=== PATIENT | female | born 1935 | race Caucasian/White ===

== ENCOUNTER → 2020-07-11 10:35 | Outpatient (BNVA) | payer MEDICARE, SELFPAY | PROVIDERS: PCP Internal Medicine; Visit Provider Urology | DX: Z13.89 Encounter for screening for other disorder (principal) | CPT/HCPCS: Q3014 ==

== ENCOUNTER 2022-03-18 16:34 | Outpatient (REF) | payer MEDICARE, SELFPAY ==
[2022-03-18 16:50] LABS: MANUAL DIFF FLAG NO
[2022-03-18 17:30] LABS: Basophils Absolute Auto 0.1 X10*3/uL (0.0-0.2); Basophils Percent Auto 0.9 % (0-2); Eosinophils Absolute Auto 0.1 X10*3/uL (0.0-0.4); Eosinophils Percent Auto 1.8 % (0-4); Hematocrit 43.6 % (37.0-47.0); Hemoglobin 14.4 g/dl (12.0-16.0); Imm Gran Abs Auto 0.04 X10*3/uL (0.00-0.03); Imm Gran Pct Auto 0.5 % (0.0-0.4); Lymphocytes Absolute Auto 2.3 X10*3/uL (1.2-4.9); Lymphocytes Percent Auto 29.2 % (20-40); Mean Corpuscular Hemoglobin 29.4 pg (27.0-33.0); Mean Platelet Volume 11.9 fL (9.4-12.3); Monocytes Absolute Auto 0.5 X10*3/uL (0.1-1.2); Neutrophils Absolute Auto 4.8 x10*3/uL (2.0-8.3); Neutrophils Percent Auto 61.6 % (45-73); Platelet Count 301 X10*3/uL (160-400); Red Cell Distribution Width 13.1 % (11.0-16.0); White Blood Count 7.8 X10*3/uL (4.8-10.8)
[2022-03-18 17:58] LABS: C Reactive Protein 0.15 mg/dL (< or = 0.50)
[2022-03-18 18:19] LABS: Erythrocyte Sedimentation Rate 16 MM/HR (0-20)
== END 2022-03-18 16:35 | disposition home or self-care (01) ==
LOC: HO.LAB 16:34
PROVIDERS: Visit Provider Ophthalmology
DX: M31.6 Other giant cell arteritis (principal)
CPT/HCPCS: 36415; 85025; 85652; 86140

== ENCOUNTER 2022-07-07 17:53 | Emergency (ER) | payer MEDICARE, SELFPAY ==
--- NOTE | ~2022-07-07 | US_ITS ---
EXAMINATION: US ABDOMEN LIMITED CLINICAL INFORMATION: Abnormal liver functions and right upper quadrant pain. COMPARISON: CT abdomen pelvis 04/27/2017 TECHNIQUE: Real-time imaging of the right upper quadrant abdominal viscera. FINDINGS: PANCREAS: Normal. LIVER: The liver is normal in size. The liver contour is normal. There is a suggestion of some minimal increased echogenicity of the liver raising the question of hepatic steatosis. No focal hepatic lesion. There is no intrahepatic biliary duct dilatation seen. GALLBLADDER: Surgically absent. COMMON BILE DUCT: Normal in caliber measuring 0.7 cm in diameter. RIGHT KIDNEY: No hydronephrosis. No renal calculi or focal parenchymal lesions. The kidney measures 8.1m cm in maximum dimension. FREE FLUID: None. US/US abdomen limited IMPRESSION: Question of hepatic steatosis.
[2022-07-07 17:55] VITALS: BP 156/81; PULSE 84; RESP 16; TEMP 36.2; O2SAT 98; BMI 24.7
--- NOTE | 2022-07-07 17:56 | ED.RECABL ---
HPI - Recheck/Abnormal Lab/Rx General Chief Complaint: Recheck/Abnormal Lab/Rx <MIESHA Fairchild - Last Filed: 07/07/22 18:04> Stated Complaint: Abnormal labs <MIESHA Fairchild - Last Filed: 07/07/22 18:04> Time Seen by Provider: 07/07/22 23:20 <MIESHA Fairchild - Last Filed: 07/07/22 18:04> Source: patient <Richard Clayton MD - Last Filed: 07/08/22 00:30> Mode of arrival: ambulatory <Richard Clayton MD - Last Filed: 07/08/22 00:30> Limitations: no limitations <Richard Clayton MD - Last Filed: 07/08/22 00:30> History of Present Illness HPI narrative: Patient with upper abdominal discomfort for last 3 weeks since she had COVID in 06/02 does not feel hungry feels bloated status post cholecystectomy chronic back pain had labs done as outpatient showed elevated liver function test patient denied use of Tylenol had CT scan done today as outpatient which according to patient was normal had ultrasound done which was also negative except for hepatic steatosis no fever no chills no rash no bleeding no itching no change in sensorium patient take atorvastatin, aspirin, tramadol <Richard Clayton MD - Last Filed: 07/08/22 00:30> Related Data Home Medications: Previous Rx's Medication Instructions Recorded mirabegron 50 mg tablet,extended 50 mg PO DAILY #30 tabs 02/12/21 release 24 hr (Myrbetriq) pantoprazole 40 mg tablet,delayed 40 mg PO DAILY #30 tabs 07/08/22 release (Protonix) sucralfate 1 gram tablet 1 g PO BID #60 tabs 07/08/22 <MIESHA Fairchild - Last Filed: 07/07/22 18:04> Allergies/Adverse Reactions: Allergies Allergy/AdvReac Type Severity Reaction Status Date / Time Iodinated Contrast Media Allergy Mild FACIAL Verified 07/07/22 17:59 [IV Dye, Iodine Containing] SWELLING codeine Allergy Unknown N&V Uncoded 05/19/19 00:00 IVP dye Allergy Unknown hives, Uncoded 05/19/19 00:00 urticaria <MIESHA Fairchild - Last Filed: 07/07/22 18:04> Review of Systems Review of Systems: Yes all other systems are reviewed and are negative <Richard Clayton MD - Last Filed: 07/08/22 00:30> [facility] Past Medical History Medical History: Medical History Cystitis cystica H/O urinary frequency Nocturia Overactive bladder Urge incontinence Urge incontinence Urgency of micturition <MIESHA Fairchild - Last Filed: 07/07/22 18:04> Social History Social History: Social History Advance Directives: No Advance Directives Information Provided: Yes <MIESHA Fairchild - Last Filed: 07/07/22 18:04> Physical Exam Vital Signs: Vital Signs: Last Vital Signs Temp 98.5 F 07/07/22 22:51 Pulse 71 07/07/22 22:51 Resp 16 07/07/22 22:51 BP 148/67 H 07/07/22 22:51 Pulse Ox 98 07/07/22 22:51 O2 Del Method 07/07/22 22:51 BMI result Body Mass Index 24.7 <MIESHA Fairchild - Last Filed: 07/07/22 18:04> Vital Signs: Last Vital Signs Temp 98.5 F 07/07/22 22:51 Pulse 71 07/07/22 22:51 Resp 16 07/07/22 22:51 BP 148/67 H 07/07/22 22:51 Pulse Ox 98 07/07/22 22:51 O2 Del Method 07/07/22 22:51 BMI result Body Mass Index 24.7 <Richard Clayton MD - Last Filed: 07/08/22 00:30> Appearance: Alert. Oriented X3. No acute distress. Eyes: PERRLA, No Nystagmus ENT: Pharynx normal. Oral Mucosa moist Neck: Normal inspection. Neck supple. CVS: Normal heart rate and rhythm. Pulses normal. Respiratory: No respiratory distress. Equal air entry bilateral, no wheezing/rales/rhonchi Abdomen: Soft mild discomfort in epigastric area Bowel sounds are present, no mass palpable, no CVA tenderness Skin: Skin warm and dry. Normal skin color. Normal skin turgor. Extremities: No lower extremity edema. No calf tenderness Neuro: Oriented X 3. No motor deficit. No sensory deficit.No cerebellar signs , cranial nerves II-XII intact <Richard Clayton MD - Last Filed: 07/08/22 00:30> Course Course Course Narrative: RME - 86 yo female with history of COVID 06/09/22 s/p Paxlovid presenting from doctor's office with elevated liver enzymes. She reports RUQ pain and fullness for a while now, since before COVID. Nauseated but no vomiting or diarrhea. VSS and appears well in triage. Minimal RUQ tenderness. Will get repeat labs, INR, and RUQ U/S for further evaluation. LFTS on her electronic medical record showing LFTs 200/700, bilirubin 2.0. ?hepatoxicity from Paxlovid. <MIESHA Fairchild - Last Filed: 07/07/22 18:04> Medical Decision Making Medical Decision Making [facility] Narrative: Cause of acute elevation in liver enzymes not very clear patient does not take Tylenol no significant medication causing the pruritus except for status which advised to stop it patient advised to follow with the GI case discussed Dr. Kaminski agreed as outpatient follow up <Richard Clayton MD - Last Filed: 07/08/22 00:30> Lab Data [facility] Lab Attestation statement: I reviewed the patient's lab results. <Richard Clayton MD - Last Filed: 07/08/22 00:30> Result Diagrams: 07/07/22 20:57 07/07/22 20:57 <MIESHA Fairchild - Last Filed: 07/07/22 18:04> Labs: Lab Results 07/07/22 07/07/22 07/07/22 Range/Units 20:57 20:57 20:57 WBC 5.9 (4.8-10.8) X10*3/uL RBC 4.92 (4.20-5.50) X10*6/uL Hgb 14.2 (12.0-16.0) g/dl Hct 42.5 (37.0-47.0) % MCV 86.4 (80.0-98.0) fL MCH 28.9 (27.0-33.0) pg MCHC 33.4 (31.0-35.0) g/dl RDW 13.6 (11.0-16.0) % Plt Count 238 (160-400) X10*3/uL MPV 11.2 (9.4-12.3) fL Immature Gran % (Auto) 0.2 (0.0-0.4) % Neut % (Auto) 61.2 (45-73) % Lymph % (Auto) 25.3 (20-40) % [place] % (Auto) 9.1 (2-11) % Eos % (Auto) 3.4 (0-4) % Baso % (Auto) 0.8 (0-2) % Lymph # (Auto) 1.5 (1.2-4.9) X10*3/uL [place] # (Auto) 0.5 (0.1-1.2) X10*3/uL Eos # (Auto) 0.2 (0.0-0.4) X10*3/uL Baso # (Auto) 0.1 (0.0-0.2) X10*3/uL Abs Immat Gran (auto) 0.01 (0.00-0.03) X10*3/uL Absolute Neuts (auto) 3.6 (2.0-8.3) x10*3/uL Absolute Nucleated RBC 0.000 (0.0-0.012) X10*3/uL Nucleated RBC % (auto) 0.0 (0.0-0.2) /100WBC PT 10.8 (10.0-13.1) SEC INR 0.9 (0.9-1.1) APTT 38.2 H (26.0-36.4) SEC Sodium 142 (135-145) mmol/L Potassium 3.8 (3.3-5.1) mmol/L Chloride 106 (96-108) mmol/L Carbon Dioxide 26 (22-29) mmol/L Anion Gap 14 (12-20) BUN 12 (9-16) mg/dL Creatinine 0.80 (0.5-1.4) mg/dL Estim Creat Clear Calc 45.2 Estimated GFR > 60 Random Glucose 114 (60-115) mg/dL Calcium 9.4 (8.4-10.2) mg/dL Magnesium 2.3 (1.6-2.6) mg/dL Total Bilirubin 1.8 H (0.0-1.0) mg/dL Direct Bilirubin 1.2 H (0.0-0.5) mg/dL AST 343 H (5-31) U/L ALT 602 H (0-31) U/L Alkaline Phosphatase 248 H (39-117) U/L Total Protein 6.7 (6.5-8.0) g/dL Albumin 4.1 (3.5-5.0) g/dL Lipase 31 (8-78) U/L Urine Color Urine Appearance Urine pH (5.0-9.0) Ur Specific [place] (1.005-1.025) Urine Protein (Neg-Trace) mg/dL Urine Glucose (UA) (Negative) mg/dL Urine Ketones (Negative) mg/dL Urine Blood (Negative) Urine Nitrite (Negative) Ur Leukocyte Esterase (Negative) Urine RBC (0-2) /HPF Urine WBC (0-5) /HPF Ur Squamous Epith Cells (0-2) /HPF Urine Bacteria (None Seen) Hyaline Casts (0-2) /LPF Acetaminophen < 17 (<30) mcg/mL Influenza Type A (PCR) (Negative) Influenza Type B (PCR) (Negative) RSV RNA Qual (PCR) (Negative) SARS-CoV-2 RNA (RT-PCR) (Negative) 07/07/22 07/07/22 Range/Units 22:32 23:48 WBC (4.8-10.8) X10*3/uL RBC (4.20-5.50) X10*6/uL Hgb (12.0-16.0) g/dl Hct (37.0-47.0) % MCV (80.0-98.0) fL MCH (27.0-33.0) pg MCHC (31.0-35.0) g/dl RDW (11.0-16.0) % Plt Count (160-400) X10*3/uL MPV (9.4-12.3) fL Immature Gran % (Auto) (0.0-0.4) % Neut % (Auto) (45-73) % Lymph % (Auto) (20-40) % Marathon % (Auto) (2-11) % Eos % (Auto) (0-4) % Baso % (Auto) (0-2) % Lymph # (Auto) (1.2-4.9) X10*3/uL Marathon # (Auto) (0.1-1.2) X10*3/uL Eos # (Auto) (0.0-0.4) X10*3/uL Baso # (Auto) (0.0-0.2) X10*3/uL Abs Immat Gran (auto) (0.00-0.03) X10*3/uL Absolute Neuts (auto) (2.0-8.3) x10*3/uL Absolute Nucleated RBC (0.0-0.012) X10*3/uL Nucleated RBC % (auto) (0.0-0.2) /100WBC PT (10.0-13.1) SEC INR (0.9-1.1) APTT (26.0-36.4) SEC Sodium (135-145) mmol/L Potassium (3.3-5.1) mmol/L Chloride (96-108) mmol/L Carbon Dioxide (22-29) mmol/L Anion Gap (12-20) BUN (9-16) mg/dL Creatinine (0.5-1.4) mg/dL Estim Creat Clear Calc Estimated GFR Random Glucose (60-115) mg/dL Calcium (8.4-10.2) mg/dL Magnesium (1.6-2.6) mg/dL Total Bilirubin (0.0-1.0) mg/dL Direct Bilirubin (0.0-0.5) mg/dL AST (5-31) U/L ALT (0-31) U/L Alkaline Phosphatase (39-117) U/L Total Protein (6.5-8.0) g/dL Albumin (3.5-5.0) g/dL Lipase (8-78) U/L Urine Color Yellow Urine Appearance Clear Urine pH 5.5 (5.0-9.0) Ur Specific [place] <= 1.005 (1.005-1.025) Urine Protein Negative (Neg-Trace) mg/dL Urine Glucose (UA) Negative (Negative) mg/dL Urine Ketones Negative (Negative) mg/dL Urine Blood Trace H (Negative) Urine Nitrite Negative (Negative) Ur Leukocyte Esterase Trace H (Negative) Urine RBC 0-2 (0-2) /HPF Urine WBC 0-5 (0-5) /HPF Ur Squamous Epith Cells 0-2 (0-2) /HPF Urine Bacteria None Seen (None Seen) Hyaline Casts 0-2 (0-2) /LPF Acetaminophen (<30) mcg/mL Influenza Type A (PCR) NEGATIVE (Negative) Influenza Type B (PCR) NEGATIVE (Negative) RSV RNA Qual (PCR) NEGATIVE (Negative) SARS-CoV-2 RNA (RT-PCR) NEGATIVE (Negative) <MIESHA Fairchild - Last Filed: 07/07/22 18:04> Lab Results 07/07/22 07/07/22 07/07/22 Range/Units 20:57 20:57 20:57 WBC 5.9 (4.8-10.8) X10*3/uL RBC 4.92 (4.20-5.50) X10*6/uL Hgb 14.2 (12.0-16.0) g/dl Hct 42.5 (37.0-47.0) % MCV 86.4 (80.0-98.0) fL MCH 28.9 (27.0-33.0) pg MCHC 33.4 (31.0-35.0) g/dl RDW 13.6 (11.0-16.0) % Plt Count 238 (160-400) X10*3/uL MPV 11.2 (9.4-12.3) fL Immature Gran % (Auto) 0.2 (0.0-0.4) % Neut % (Auto) 61.2 (45-73) % Lymph % (Auto) 25.3 (20-40) % Marathon % (Auto) 9.1 (2-11) % Eos % (Auto) 3.4 (0-4) % Baso % (Auto) 0.8 (0-2) % Lymph # (Auto) 1.5 (1.2-4.9) X10*3/uL Marathon # (Auto) 0.5 (0.1-1.2) X10*3/uL Eos # (Auto) 0.2 (0.0-0.4) X10*3/uL Baso # (Auto) 0.1 (0.0-0.2) X10*3/uL Abs Immat Gran (auto) 0.01 (0.00-0.03) X10*3/uL Absolute Neuts (auto) 3.6 (2.0-8.3) x10*3/uL Absolute Nucleated RBC 0.000 (0.0-0.012) X10*3/uL Nucleated RBC % (auto) 0.0 (0.0-0.2) /100WBC PT 10.8 (10.0-13.1) SEC INR 0.9 (0.9-1.1) APTT 38.2 H (26.0-36.4) SEC Sodium 142 (135-145) mmol/L Potassium 3.8 (3.3-5.1) mmol/L Chloride 106 (96-108) mmol/L Carbon Dioxide 26 (22-29) mmol/L Anion Gap 14 (12-20) BUN 12 (9-16) mg/dL Creatinine 0.80 (0.5-1.4) mg/dL Estim Creat Clear Calc 45.2 Estimated GFR > 60 Random Glucose 114 (60-115) mg/dL Calcium 9.4 (8.4-10.2) mg/dL Magnesium 2.3 (1.6-2.6) mg/dL Total Bilirubin 1.8 H (0.0-1.0) mg/dL Direct Bilirubin 1.2 H (0.0-0.5) mg/dL AST 343 H (5-31) U/L ALT 602 H (0-31) U/L Alkaline Phosphatase 248 H (39-117) U/L Total Protein 6.7 (6.5-8.0) g/dL Albumin 4.1 (3.5-5.0) g/dL Lipase 31 (8-78) U/L Urine Color Urine Appearance Urine pH (5.0-9.0) Ur Specific [place] (1.005-1.025) Urine Protein (Neg-Trace) mg/dL Urine Glucose (UA) (Negative) mg/dL Urine Ketones (Negative) mg/dL Urine Blood (Negative) Urine Nitrite (Negative) Ur Leukocyte Esterase (Negative) Urine RBC (0-2) /HPF Urine WBC (0-5) /HPF Ur Squamous Epith Cells (0-2) /HPF Urine Bacteria (None Seen) Hyaline Casts (0-2) /LPF Acetaminophen < 17 (<30) mcg/mL Influenza Type A (PCR) (Negative) Influenza Type B (PCR) (Negative) RSV RNA Qual (PCR) (Negative) SARS-CoV-2 RNA (RT-PCR) (Negative) 07/07/22 07/07/22 Range/Units 22:32 23:48 WBC (4.8-10.8) X10*3/uL RBC (4.20-5.50) X10*6/uL Hgb (12.0-16.0) g/dl Hct (37.0-47.0) % MCV (80.0-98.0) fL MCH (27.0-33.0) pg MCHC (31.0-35.0) g/dl RDW (11.0-16.0) % Plt Count (160-400) X10*3/uL MPV (9.4-12.3) fL Immature Gran % (Auto) (0.0-0.4) % Neut % (Auto) (45-73) % Lymph % (Auto) (20-40) % Marathon % (Auto) (2-11) % Eos % (Auto) (0-4) % Baso % (Auto) (0-2) % Lymph # (Auto) (1.2-4.9) X10*3/uL Marathon # (Auto) (0.1-1.2) X10*3/uL Eos # (Auto) (0.0-0.4) X10*3/uL Baso # (Auto) (0.0-0.2) X10*3/uL Abs Immat Gran (auto) (0.00-0.03) X10*3/uL Absolute Neuts (auto) (2.0-8.3) x10*3/uL Absolute Nucleated RBC (0.0-0.012) X10*3/uL Nucleated RBC % (auto) (0.0-0.2) /100WBC PT (10.0-13.1) SEC INR (0.9-1.1) APTT (26.0-36.4) SEC Sodium (135-145) mmol/L Potassium (3.3-5.1) mmol/L Chloride (96-108) mmol/L Carbon Dioxide (22-29) mmol/L Anion Gap (12-20) BUN (9-16) mg/dL Creatinine (0.5-1.4) mg/dL Estim Creat Clear Calc Estimated GFR Random Glucose (60-115) mg/dL Calcium (8.4-10.2) mg/dL Magnesium (1.6-2.6) mg/dL Total Bilirubin (0.0-1.0) mg/dL Direct Bilirubin (0.0-0.5) mg/dL AST (5-31) U/L ALT (0-31) U/L Alkaline Phosphatase (39-117) U/L Total Protein (6.5-8.0) g/dL Albumin (3.5-5.0) g/dL Lipase (8-78) U/L Urine Color Yellow Urine Appearance Clear Urine pH 5.5 (5.0-9.0) Ur Specific [place] <= 1.005 (1.005-1.025) Urine Protein Negative (Neg-Trace) mg/dL Urine Glucose (UA) Negative (Negative) mg/dL Urine Ketones Negative (Negative) mg/dL Urine Blood Trace H (Negative) Urine Nitrite Negative (Negative) Ur Leukocyte Esterase Trace H (Negative) Urine RBC 0-2 (0-2) /HPF Urine WBC 0-5 (0-5) /HPF Ur Squamous Epith Cells 0-2 (0-2) /HPF Urine Bacteria None Seen (None Seen) Hyaline Casts 0-2 (0-2) /LPF Acetaminophen (<30) mcg/mL Influenza Type A (PCR) NEGATIVE (Negative) Influenza Type B (PCR) NEGATIVE (Negative) RSV RNA Qual (PCR) NEGATIVE (Negative) SARS-CoV-2 RNA (RT-PCR) NEGATIVE (Negative) <Richard Clayton MD - Last Filed: 07/08/22 00:30> Discharge Plan Discharge Clinical Impression: Abnormal LFTs (liver function tests) <MIESHA Fairchild - Last Filed: 07/07/22 18:04> Patient Disposition: Home, Self-Care <MIESHA Fairchild - Last Filed: 07/07/22 18:04> Instructions: Acute Liver Failure (DC) <MIESHA Fairchild - Last Filed: 07/07/22 18:04> Additional Instructions: avoid fried food Avoid Tylenol Follow-up with merchandising director to recheck the labs and management <MIESHA Fairchild - Last Filed: 07/07/22 18:04> Prescriptions: New pantoprazole [Protonix] 40 mg tablet,delayed release (DR/EC) 40 mg PO DAILY Qty: 30 0RF sucralfate 1 gram tablet 1 g PO BID Qty: 60 0RF No Action Myrbetriq 50 mg tablet extended release 24 hr 50 mg PO DAILY Qty: 30 5RF <MIESHA Fairchild - Last Filed: 07/07/22 18:04> Referrals: Alicia Kaminski MD [Physician] - 3 days <MIESHA Fairchild - Last Filed: 07/07/22 18:04>
[2022-07-07 21:04] LABS: MANUAL DIFF FLAG NO
[2022-07-07 21:06] LABS: Basophils Absolute Auto 0.1 X10*3/uL (0.0-0.2); Basophils Percent Auto 0.8 % (0-2); Eosinophils Absolute Auto 0.2 X10*3/uL (0.0-0.4); Eosinophils Percent Auto 3.4 % (0-4); Hematocrit 42.5 % (37.0-47.0); Hemoglobin 14.2 g/dl (12.0-16.0); Imm Gran Abs Auto 0.01 X10*3/uL (0.00-0.03); Imm Gran Pct Auto 0.2 % (0.0-0.4); Lymphocytes Absolute Auto 1.5 X10*3/uL (1.2-4.9); Lymphocytes Percent Auto 25.3 % (20-40); Mean Corpuscular HGB Conc 33.4 g/dl (31.0-35.0); Mean Corpuscular Hemoglobin 28.9 pg (27.0-33.0); Mean Corpuscular Volume 86.4 fL (80.0-98.0); Mean Platelet Volume 11.2 fL (9.4-12.3); Monocytes Absolute Auto 0.5 X10*3/uL (0.1-1.2); Monocytes Percent Auto 9.1 % (2-11); Neutrophils Absolute Auto 3.6 x10*3/uL (2.0-8.3); Neutrophils Percent Auto 61.2 % (45-73); Platelet Count 238 X10*3/uL (160-400); Red Blood Count 4.92 X10*6/uL (4.20-5.50); Red Cell Distribution Width 13.6 % (11.0-16.0); White Blood Count 5.9 X10*3/uL (4.8-10.8)
[2022-07-07 21:12] LABS: INTERNATIONAL NORM RATIO 0.9 (0.9-1.1); Prothrombin Time 10.8 SEC (10.0-13.1)
[2022-07-07 21:14] LABS: Partial Thromboplastin Time 38.2 SEC (26.0-36.4)
[2022-07-07 21:25] LABS: Alanine Aminotransferase 602 U/L (0-31); Albumin Level 4.1 g/dL (3.5-5.0); Alkaline Phosphatase 248 U/L (39-117); Anion Gap 14 (12-20); Aspartate Amino Transferase 343 U/L (5-31); Bilirubin Direct 1.2 mg/dL (0.0-0.5); Bilirubin Total 1.8 mg/dL (0.0-1.0); Blood Urea Nitrogen 12 mg/dL (9-16); Calcium 9.4 mg/dL (8.4-10.2); Carbon Dioxide 26 mmol/L (22-29); Chloride 106 mmol/L (96-108); Creatinine Clr Calc Pharmacy 45.2; Estimated Glomerular Filt Rate > 60; Glucose Random 114 mg/dL (60-115); Lipase 31 U/L (8-78); Magnesium 2.3 mg/dL (1.6-2.6); Potassium 3.8 mmol/L (3.3-5.1); Sodium 142 mmol/L (135-145); Total Protein 6.7 g/dL (6.5-8.0)
[2022-07-07 22:26] VITALS: BP 153/66; PULSE 77; RESP 20; TEMP 36.4; O2SAT 97
[2022-07-07 22:51] VITALS: BP 148/67; PULSE 71; RESP 16; TEMP 36.9; O2SAT 98
[2022-07-07 23:14] LABS: Influenza A PCR NEGATIVE (Negative); Influenza B PCR NEGATIVE (Negative); Resp Syncy Virus RNA Qual PCR NEGATIVE (Negative); SARS COV2 PCR INHOUSE NEGATIVE (Negative)
[2022-07-07 23:58] LABS: Appearance Urine Clear; Color Urine Yellow; Glucose Urine UA Negative (Negative); Leukocyte Esterase Urine Trace (Negative); Nitrite Urine Negative (Negative); PH 5.5 (5.0-9.0); Specific Gravity - Urine <= 1.005 (1.005-1.025); UMIC TRIGGER UACC YES; Urine Blood Trace (Negative); Urine Ketones Negative (Negative); Urine Protein Negative (Neg-Trace)
[2022-07-08 00:04] LABS: Bacteria Urine None Seen (None Seen); Hyaline Casts Urine 0-2 /LPF (0-2); RBC Urine 0-2 /HPF (0-2); Squamous Epithelial Cell Urine 0-2 /HPF (0-2); WBC Urine 0-5 /HPF (0-5)
[2022-07-08 00:19] LABS: Acetaminophen LAB < 17 mcg/mL (<30)
[2022-07-08 00:41] VITALS: BP 144/56; PULSE 71; RESP 18; TEMP 37.1; O2SAT 98
[2022-07-08] MEDS: Omeprazole 40 MG CAPSULE.DR PO (00:46)
[2022-07-08] MEDS: Magnesium Hydrox/Alum Hydrox 30 ML ORAL.SUSP PO (00:46)
[2022-07-08 09:01] LABS: HBS Num1 0.14 mIU/mL (0-7.99); HBsAGNum1 0.29 S/CO (0.00-0.99); Hepatitis A Antibody IgM 0.14 Index (0-0.79); Hepatitis B Core Antibody Nonreactive (Nonreactive); Hepatitis B Surface Antigen Negative (Negative); ~HepC Num1 0.06 S/CO (0.00-0.79); ~Hepatitis A Antibody IgM Nonreactive (Nonreactive); ~Hepatitis B Surface Antibody NONREACTIVE (Nonreactive); ~Hepatitis C Antibody Nonreactive (Nonreactive)
== END 2022-07-08 01:01 | disposition home or self-care (01) ==
PROVIDERS: Physician Assistant; Emergency Provider Internal Medicine; PCP Internal Medicine
DX: R79.89 Other specified abnormal findings of blood chemistry (principal); Z20.828 Contact with and (suspected) exposure to other viral communicable diseases; Z20.822 Contact with and (suspected) exposure to COVID-19; Z79.899 Other long term (current) drug therapy
CPT/HCPCS: 0241U; 36415; 76705; 80048; 80076; 80143; 81001; 83690; 83735; 85025; 85610; 85730; 86704; 86706; 86709; 86803; 87340; 99284

== ENCOUNTER → 2022-07-13 12:10 | Outpatient (BNVA) | payer MEDICARE, SELFPAY | PROVIDERS: PCP Internal Medicine; Visit Provider Internal Medicine | DX: R79.89 Other specified abnormal findings of blood chemistry (principal); Z86.16 Personal history of COVID-19 | CPT/HCPCS: 99202 ==

== ENCOUNTER 2022-07-27 11:16 | Outpatient (REF) | payer MEDICARE, SELFPAY ==
[2022-07-27 12:36] LABS: Alanine Aminotransferase 27 U/L (0-31); Albumin Level 3.9 g/dL (3.5-5.0); Alkaline Phosphatase 83 U/L (39-117); Aspartate Amino Transferase 25 U/L (5-31); Bilirubin Direct 0.2 mg/dL (0.0-0.5); Bilirubin Total 0.5 mg/dL (0.0-1.0); Total Protein 6.3 g/dL (6.5-8.0)
== END 2022-07-27 11:17 | disposition home or self-care (01) ==
LOC: HO.LAB 11:16
PROVIDERS: Visit Provider Internal Medicine
DX: R79.89 Other specified abnormal findings of blood chemistry (principal)
CPT/HCPCS: 36415; 80076

== ENCOUNTER → 2022-08-10 10:14 | Outpatient (BNVA) | payer MEDICARE, SELFPAY | PROVIDERS: PCP Internal Medicine; Visit Provider Internal Medicine | DX: K21.9 Gastro-esophageal reflux disease without esophagitis (principal); R79.89 Other specified abnormal findings of blood chemistry; Z86.16 Personal history of COVID-19 | CPT/HCPCS: 99212 ==

== ENCOUNTER 2022-12-14 12:27 | Outpatient (REF) | payer MEDICARE, SELFPAY ==
[2022-12-14 14:28] LABS: Alanine Aminotransferase 18 U/L (0-31); Albumin Level 4.1 g/dL (3.5-5.0); Alkaline Phosphatase 67 U/L (39-117); Anion Gap 13 (12-20); Aspartate Amino Transferase 26 U/L (5-31); Bilirubin Total 0.7 mg/dL (0.0-1.0); Blood Urea Nitrogen 17 mg/dL (9-16); Calcium 9.8 mg/dL (8.4-10.2); Carbon Dioxide 27 mmol/L (22-29); Chloride 105 mmol/L (96-108); Estimated Glomerular Filt Rate > 60; Gamma Glutamyl Transpeptidase 94 U/L (7-33); Glucose Random 98 mg/dL (60-115); Potassium 3.9 mmol/L (3.3-5.1); Sodium 141 mmol/L (135-145)
[2022-12-14 14:47] LABS: TSH reflex Free T4 6.55 uIU/mL (0.32-4.0)
[2022-12-14 15:19] LABS: Free T4 (Free Thyroxine) 0.86 ng/dL (0.71-1.85)
== END 2022-12-14 12:28 | disposition home or self-care (01) ==
LOC: HO.LAB 12:27
PROVIDERS: PCP Internal Medicine; Visit Provider Internal Medicine
DX: R19.7 Diarrhea, unspecified (principal); R11.10 Vomiting, unspecified; R79.89 Other specified abnormal findings of blood chemistry
CPT/HCPCS: 36415; 80053; 82977; 84439; 84443; 85027; 99212

== ENCOUNTER 2022-12-24 | Outpatient (REF) | payer MEDICARE, SELFPAY ==
[2022-12-25 15:46] LABS: Campylobacter Not Detected (Not Detect.); E. coli EAEC Detected (Not Detect.); Plesiomonas shigelloides Not Detected (Not Detect.); Salmonella Not Detected (Not Detect.); Vibrio Not Detected (Not Detect.); Vibrio Cholerae Not Detected (Not Detect.); Yersinia enterocolitica Not Detected (Not Detect.)
[2022-12-25 15:47] LABS: E. coli ETEC Not Detected (Not Detect.)
[2022-12-25 15:48] LABS: E. coli O157 Not Detected (Not Detect.)
[2022-12-25 15:49] LABS: Adenovirus F 40/41 Not Detected (Not Detect.); Astrovirus Not Detected (Not Detect.); Cryptosporidium Not Detected (Not Detect.); Cyclospora cayetanensis Not Detected (Not Detect.); Entamoeba histolytica Not Detected (Not Detect.); Giardia lamblia Not Detected (Not Detect.); Norovirus GI/GII Not Detected (Not Detect.); Rotavirus A Not Detected (Not Detect.); Sapovirus Not Detected (Not Detect.); Shigella sp./EIEC Not Detected (Not Detect.)
[2022-12-29 11:38] LABS: E. coli STEC Detected (Not Detect.)
== END 2022-12-24 00:01 | disposition home or self-care (01) ==
LOC: HO.LNP
PROVIDERS: Visit Provider Internal Medicine
DX: R11.10 Vomiting, unspecified (principal); R19.7 Diarrhea, unspecified
CPT/HCPCS: 87507

== ENCOUNTER 2023-01-11 11:28 | Outpatient (AMB) | payer MEDICARE, SELFPAY ==
--- NOTE | 2023-01-11 11:34 | MHC.OFFVIS ---
Intake Vital Signs 01/11/23 11:35 Height 5 ft 3 in Weight 136 lb 10.986 oz BMI 24.2 BP 120/59 L Blood Pressure Location Lt brachial Position Sitting Pulse 65 Intake Visit Reasons: 4 week follow up Intake Note: Smita presents in the office as a 4 week follow up. CC: She states that she has a colonoscopy coming up and she sent in a series of stool samples for Jessi. Campus Receptionist Required: No Allergies Iodinated Contrast Media [IV Dye, Iodine Containing] Allergy (Mild, Verified 01/11/23 11:36) FACIAL SWELLING codeine Allergy (Unknown, Uncoded 01/11/23 11:36) N&V IVP dye Allergy (Unknown, Uncoded 01/11/23 11:36) hives, urticaria HPI HPI Comments History of Present Illness Details 86 y.o F with recent hx of covid-19 infection who was seen in ER for elevated LFTs earlier this year and is here for follow up. 07/13/22: Pt was seen at a local urgent care last week for abdominal pain for a month, loss of appetite, nauseous, dysgeusia. Pt also reports subjective weight loss as her clothes are a bit loose on her now. She was noted to have elevated LFTs with grossly normal appearing CT abdomen (some fatty infiltration of the liver). She was advised to go to the emergency room for further evaluation. She was seen in the emergency room on 07/07 and at that time, AST 343, ALT 602, alk-phos 248, total bilirubin 1.8. Her INR was normal. Patient does have a background history of COVID in the last week of May. She was on Paxil with for this. No other antibiotics, with the counter supplements, or NSAID use in the meantime. No episodes of proceeding sickness/dehydration/presyncope. Patient does not drink. No family history of chronic liver disease. Patient does not have any personal history of hepatitis. Hepatitis serologies from 07/07 were negative. She also underwent an ultrasound on 07/07 that was also grossly normal apart from mild hepatic steatosis. Acute liver failure was noted in her discharge summary which understandably was quite distressing for the patient. 08/10/22: Currently, only main complaint is occasional reflux and heartburn. Otherwise, no abdominal pain, nausea, vomiting. Appetite has returned, states that was likely not eating due to the stress of thinking she has liver failure. Labs reviewed with the patient over the phone 2 weeks ago, and again today-essentially normal LFTs now. 12/14/22: Pt requested this appt due to recurrent bouts of nausea and vomiting over the past 2 months. Has had atleast 4 distinct episodes of sudden onset of nausea and large amounts of emesis that lasts 2-3 days. The first episode in October was associated with diarrhea as well however subsequent episodes only had vomiting. In between the episodes would feel completely fine. No distinct abd pain with this, or fevers or chills. Had labs done through PCP that showed mildly elevated LFTs again. No repeat imaging done at that time and was told to follow up with GI. Had CT abd/pel with PO contrast and US Abd in Jun which did not show any distinct GOO, pancreatic lesion etc. Was noted to have mild mesenteric atherosclerosis. Currently has been sx free x 2 weeks now. Feels at baseline. 01/11/23: Currently no gastrointestinal complaints. Reviewed reuslts of the stool PCR again - ABx were deferred as pt's sx were self limiting. Thinks ?? may be contracted GI illness after consuming produce from a local farm share but is not sure. [facility] Medical History Cystitis cystica H/O urinary frequency Nocturia Overactive bladder Urge incontinence Urge incontinence Urgency of micturition Surgical History Hx of colonoscopy Family History Maternal Aunt Colon cancer Social History Alcohol intake: never Physical Exam Vital Signs: Last Vital Signs Pulse 65 01/11/23 11:35 BP 120/59 L 01/11/23 11:35 BMI result Body Mass Index 24.2 Gen appear: NAD HEENT: nonicteric, no cervical lymphadenopathy Chest: CTA CVS: Regular S1/S2 Abd: soft, nontender, nondistended, bowel sounds + Ext: no peripheral edema Neuro: A/Ox3, noted to move all extremities spontaneously Psych: interacting appropriately Assessment & Plan Assessment & Plan (1) Diarrhea: Code(s): R19.7 - Diarrhea, unspecified (2) Vomiting: Code(s): R11.10 - Vomiting, unspecified Plan Self limiting GI infection due to E Coli. Pt without any symptoms x month now. UGIS was ordered at last visit however since pt without any abd pain, N,V any further she may defer it, which is reasonable. Follow up PRN. Coding Level of Care Code Est Pt Level 4 (71376) Diagnoses Diarrhea R19.7 Vomiting R11.10
[2023-01-11 11:35] VITALS: BP 120/59; PULSE 65; BMI 24.2
== END 2023-01-11 12:25 | disposition home or self-care (01) ==
PROVIDERS: PCP Internal Medicine; Visit Provider Internal Medicine
DX: R19.7 Diarrhea, unspecified (principal); R11.10 Vomiting, unspecified
CPT/HCPCS: 99214

== ENCOUNTER → 2023-01-11 11:28 | Outpatient (BNVA) | payer MEDICARE, SELFPAY | PROVIDERS: PCP Internal Medicine; Visit Provider Internal Medicine | DX: R19.7 Diarrhea, unspecified (principal); R11.10 Vomiting, unspecified | CPT/HCPCS: 99212 ==

== ENCOUNTER 2023-08-26 09:21 | Outpatient (REF) | payer MEDICARE, SELFPAY ==
--- NOTE | ~2023-08-26 | XR_ITS ---
EXAMINATION: XR KNEE, RIGHT CLINICAL INFORMATION: Pain in right knee. COMPARISON: None available. TECHNIQUE: 3 views of the right knee. FINDINGS: No significant joint effusion. Vascular calcifications. The bones are diffusely demineralized. Mild narrowing of the medial compartment. Small medial marginal and posterior patellar osteophytes. XR/XR knee RT 3V IMPRESSION: Mild degenerative changes.
== END 2023-08-26 09:22 | disposition home or self-care (01) ==
LOC: HO.HOSX 09:21
PROVIDERS: Visit Provider Orthopaedic Surgery
DX: M17.11 Unilateral primary osteoarthritis, right knee (principal); M25.561 Pain in right knee
CPT/HCPCS: 73562; 99202

== ENCOUNTER 2023-08-26 10:48 | Outpatient (AMB) | payer MEDICARE, SELFPAY ==
[2023-08-26 10:51] VITALS: BMI 24.1
--- NOTE | 2023-08-26 10:51 | MHC.OFFVIS ---
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 Patient reports her pain has been going on for about a year and is a 9 on the 1-10 pain scale. Her pain is when she is sitting and up on her feet. She states she is using tramadol and tylenol for the pain with no relief. She denies injury and surgery. She has had cortisone injections about two years ago with no relief. She wishes to hold off on surgery for as long as possible. She has done physical therapy exercises which aggravated her pain. Allergies Iodinated Contrast Media [IV Dye, Iodine Containing] Allergy (Mild, Verified 08/26/23 11:06) FACIAL SWELLING codeine Allergy (Unknown, Uncoded 01/11/23 11:36) N&V IVP dye Allergy (Unknown, Uncoded 01/11/23 11:36) hives, urticaria Medication List - Last Reconciled 08/26/23 by Garrett Hdz MD aspirin 81 mg PO DAILY atorvastatin 20 mg PO DAILY omeprazole 20 mg PO DAILY ondansetron 4 mg PO Q8H PRN 7 days tramadol 50 mg PO TID PRN PFSH Medical History (Updated 08/26/23 @ 12:38 by Garrett Hdz MD) Nocturia Urgency of micturition Urge incontinence Cystitis cystica Overactive bladder Urge incontinence H/O urinary frequency Surgical History (Updated 08/26/23 @ 11:08 by Donna Gutiérrez CMA) Hx of cholecystectomy Hx of hysterectomy Hx of colonoscopy Family History Maternal Aunt Colon cancer Social History (Updated 08/26/23 @ 11:09 by Donna Gutiérrez CMA) Alcohol intake: never Patient Tobacco Use Status: Former Tobacco user Current occupational status: retired Current occupation: Right hand dominate Physical Exam Vital Signs: BMI result Body Mass Index 24.1 Const Other: Well-nourished well-developed very friendly female awake alert and oriented x3 in no acute distress Extrem Other: Bilateral lower extremity examination shows good capillary refill, no skin lesions noted, normal sensation light touch Right knee examination shows a minimal effusion, palpable crepitus with range of motion, pain with range of motion, no instability Results Reviewed Results Reviewed: X-rays of the patient's right knee show mild to moderate joint space narrowing most significant in the medial compartment, no acute bony abnormalities Assessment & Plan Assessment & Plan (1) Arthritis of right knee: Code(s): M17.11 - Unilateral primary osteoarthritis, right knee Plan Ms. Escobar presents with right knee pain due to degenerative joint disease. I had a lengthy discussion with the patient regarding the treatment options. She wishes to hold off on surgery for as as possible. I agree with this plan. She has not gotten good relief from cortisone injections in the past. Thus, I will see whether not her insurance company will cover a viscosupplementation injection. I will see her back once the injection is available. Feel free to call me at any time should questions regarding her orthopedic management arise. Thank you very much for asking me to see this very friendly patient. I spent 22 minutes in reviewing the patient's records and imaging studies, seeing the patient and documenting in the medical record. Orders: Orders XR knee RT 3V Today M25.561 - Pain in right knee Coding Level of Care Code New Pt Level 2 (74216) Diagnoses Arthritis of right knee M17.11
== END 2023-08-26 11:25 | disposition home or self-care (01) ==
PROVIDERS: PCP Internal Medicine; Visit Provider Orthopaedic Surgery
DX: M17.11 Unilateral primary osteoarthritis, right knee (principal)
CPT/HCPCS: 99202

== ENCOUNTER 2023-09-30 14:23 | Outpatient (AMB) | payer MEDICARE, SELFPAY ==
[2023-09-30 14:28] VITALS: BMI 24.1
--- NOTE | 2023-09-30 14:28 | MHC.OFFVIS ---
Vital Signs 09/30/23 14:28 Height 5 ft 3 in Weight 136 lb BMI 24.1 Intake Visit Reasons: OV- Right knee Durolane gel injection Intake Note: Smita is a 88 year old female who presents with progressively worsening Right knee pain. Patient reports her pain has been going on for about a year and is a 9 on the 1-10 pain scale. Her pain is when she is sitting and up on her feet. She states she is using tramadol and tylenol for the pain with no relief. She denies injury and surgery. She has had cortisone injections about two years ago with no relief. She wishes to hold off on surgery for as long as possible. She has done physical therapy exercises which aggravated her pain. Allergies Iodinated Contrast Media [IV Dye, Iodine Containing] Allergy (Mild, Verified 09/30/23 14:29) FACIAL SWELLING codeine Allergy (Unknown, Uncoded 01/11/23 11:36) N&V IVP dye Allergy (Unknown, Uncoded 01/11/23 11:36) hives, urticaria Medication List - Last Reconciled 10/01/23 by Garrett Hdz MD aspirin 81 mg PO DAILY atorvastatin 20 mg PO DAILY omeprazole 20 mg PO DAILY ondansetron 4 mg PO Q8H PRN 7 days tramadol 50 mg PO TID PRN PFSH Medical History Nocturia Urgency of micturition Urge incontinence Cystitis cystica Overactive bladder Urge incontinence H/O urinary frequency Surgical History Hx of cholecystectomy Hx of hysterectomy Hx of colonoscopy Family History Maternal Aunt Colon cancer Social History Alcohol intake: never Patient Tobacco Use Status: Former Tobacco user Current occupational status: retired Current occupation: Right hand dominate Physical Exam Vital Signs: BMI result Body Mass Index 24.1 Const Other: Well-nourished well-developed very friendly female awake alert and oriented x3 in no acute distress Extrem Other: Bilateral lower extremity examination shows good capillary refill, no skin lesions noted, normal sensation light touch Right knee examination shows a minimal effusion, palpable crepitus with range of motion, pain with range of motion, no instability Office Procedures Joint Injection/Drain Joint Injection/Drain Primary Site: right knee Prep: site was prepped using aseptic technique Injected: 60 mg of (Durolane viscosupplementation) and 1% plain lidocaine Procedure: The patient tolerated the procedure well Coding 45146 - Large joint Procedure code (CPT) selection complete Results Reviewed Results Reviewed: X-rays of the patient's right knee show joint space narrowing, subchondral sclerosis, no acute bony abnormalities Assessment & Plan Assessment & Plan (1) Arthritis of right knee: Code(s): M17.11 - Unilateral primary osteoarthritis, right knee Category: Medical Plan Ms. Escobar presents with progressively worsening right knee pain due to degenerative joint disease. I had a lengthy discussion with the patient regarding the treatment options. The patient wishes to hold off on total knee replacement surgery for as long as possible. I agree with this plan. The patient has not gotten good relief from cortisone injections in the past. Thus, the risks and benefits of a Durolane viscosupplementation injection were discussed at length with the patient. The patient wished to proceed with the injection. She tolerated the injection well. She will continue with her home exercise program. She will follow up with me on an as-needed basis should her symptoms not plateau at an unacceptable level over the next few months. Feel free to call me at any time should questions regarding her orthopedic management arise. I spent 22 minutes in reviewing the patient's records and imaging studies, seeing the patient and documenting in the medical record. Orders: Orders AMB Joint Injection/Aspiration 09/30/23 M17.11 - Unilateral primary osteoarthritis, right knee
== END 2023-09-30 15:08 | disposition home or self-care (01) ==
PROVIDERS: PCP Internal Medicine; Visit Provider Orthopaedic Surgery
DX: M17.11 Unilateral primary osteoarthritis, right knee (principal)
CPT/HCPCS: 20610; 99213

== ENCOUNTER → 2023-09-30 14:23 | Outpatient (BNVA) | payer MEDICARE, SELFPAY | PROVIDERS: PCP Internal Medicine; Visit Provider Orthopaedic Surgery | DX: M17.11 Unilateral primary osteoarthritis, right knee (principal) | CPT/HCPCS: 20610; 99212; J7318 ==

== ENCOUNTER 2023-12-28 11:20 | Outpatient (REF) | payer MEDICARE, SELFPAY ==
--- NOTE | ~2023-12-28 | MM_ITS ---
EXAMINATION: BONE DENSITOMETRY CLINICAL INDICATION: Osteopenia. COMPARISON: This is the patient's baseline examination. TECHNIQUE: Using a [employer]Spring DXA System (software version: 13.1) manufactured by [employer], dual-energy x-ray absorptiometry was performed of the lumbar spine and left hip. The images are of good technical quality. Summary results are attached. FINDINGS: LEFT FEMUR, NECK: BMD 0.804 g/cm2, Z-score 0.9, T-score -1.7, osteopenia. LEFT FEMUR, TOTAL: BMD 0.904 g/cm2, Z-score 1.7, T-score -0.8, normal. AP SPINE L1-L4: BMD 0.914 g/cm2, Z-score -0.2, T-score -2.2, osteopenia. IDENTIFIED RISK FACTORS: Menopause, height loss, hysterectomy, bilateral oophorectomy, low calcium intake, osteoporosis, recurrent falls. HISTORY OF FRACTURE: None listed. MEDICATIONS: Multivitamin. MM/XR DEXA axial skeleton IMPRESSION: 1. DIAGNOSIS: Osteopenia based on the lowest T-score value of -2.2 in the lumbar spine applying World Health Organization criteria. 2. 10-YEAR FRACTURE RISK PREDICTION, FRAX: Major osteoporotic fracture (clinical spine, forearm, hip or shoulder) 12.5%. Hip fracture 3.8%. 3. Treatment Recommendations: NOF guidelines recommend consideration for treatment in postmenopausal women and men age 50 and older presenting with the following: -A hip or vertebral (clinical or morphometric) fracture. -T-score less than or equal to -2.5 at the femoral neck or spine after appropriate evaluation to exclude secondary causes. -Low bone mass at the hip or spine and a 10-year fracture probability by FRAX of greater than or equal to 3% for hip fracture or greater than or equal to 20% for major osteoporotic fracture based on the [place] adapted WHO algorithm. 4. Other Recommendations: All treatment decisions require clinical judgment and consideration of individual patient factors, including patient preferences, comorbidities, previous drug use, risk factors not captured in the FRAX model (e.g. frailty, falls, vitamin D deficiency, increased bone turnover, interval significant decline in bone density) and possible under or overestimation of fracture risk by FRAX. Additional medical evaluation for secondary cause of low bone mineral density may be appropriate. FUTURE SCAN RECOMMENDATION: People with diagnosed cases of osteoporosis or at high risk for fracture should have regular bone mineral density tests. For patients eligible for Medicare, routine testing is allowed once every 2 years. The testing frequency can be increased to one year for patients who have rapidly progressing disease, those who are receiving or discontinuing medical therapy to restore bone mass, or have additional risk factors.
== END 2023-12-28 11:21 | disposition home or self-care (01) ==
LOC: HO.MAMMO 11:20
PROVIDERS: PCP Physician Assistant Medical; Visit Provider Physician Assistant Medical
DX: Z13.820 Encounter for screening for osteoporosis (principal); M85.88 Other specified disorders of bone density and structure, other site; Z78.0 Asymptomatic menopausal state
CPT/HCPCS: 77080

== ENCOUNTER 2023-12-30 13:39 | Outpatient (AMB) | payer MEDICARE, SELFPAY ==
--- NOTE | 2023-12-30 13:42 | MHC.OFFVIS ---
Vital Signs 12/30/23 13:52 Height 5 ft 3 in Weight 136 lb BMI 24.1 Intake Visit Reasons: OV- Right knee pain Intake Note: Smita is a 88 year old female who presents with complaints of intermittent discomfort in her right knee. She did have a Durolane viscosupplementation injection given into her right knee on 09/30/2023. She got fairly good relief from that injection. She would like to go to physical therapy because of intermittent weakness in her right leg. She is also concerned about varicose veins which are painful in both of her legs. Allergies Iodinated Contrast Media [IV Dye, Iodine Containing] Allergy (Mild, Verified 12/30/23 13:51) FACIAL SWELLING codeine Allergy (Unknown, Uncoded 12/30/23 13:51) N&V IVP dye Allergy (Unknown, Uncoded 12/30/23 13:51) hives, urticaria Medication List - Last Reconciled 12/30/23 by Garrett Hdz MD aspirin 81 mg PO DAILY atorvastatin 20 mg PO DAILY omeprazole 20 mg PO DAILY ondansetron 4 mg PO Q8H PRN 7 days tramadol 50 mg PO TID PRN PFSH Medical History Nocturia Urgency of micturition Urge incontinence Cystitis cystica Overactive bladder Urge incontinence H/O urinary frequency Surgical History Hx of cholecystectomy Hx of hysterectomy Hx of colonoscopy Family History Maternal Aunt Colon cancer Social History Alcohol intake: never Patient Tobacco Use Status: Former Tobacco user Current occupational status: retired Current occupation: Right hand dominate Physical Exam Vital Signs: BMI result Body Mass Index 24.1 Const Other: Well-nourished well-developed very friendly female awake alert and oriented x3 in no acute distress Extrem Other: Right knee examination shows a minimal effusion, mild crepitus with range of motion, no instability Bilateral lower leg examination shows multiple varicose veins that are tender to palpation Assessment & Plan Assessment & Plan (1) Arthritis of right knee: Code(s): M17.11 - Unilateral primary osteoarthritis, right knee Category: Medical Plan Ms. Escobar presents with intermittent right knee discomfort due to degenerative joint disease as well as bilateral pain full lower leg varicose veins. Thus, I did give the patient a prescription to go to formal physical therapy. I will also refer her to the vascular surgery Department here at [facility]. She will contact me prior to her follow-up appointment in 3 months should any questions or concerns arise. Feel free to call me at any time should questions regarding her orthopedic management arise. I spent 21 minutes in reviewing the patient's records and imaging studies, seeing the patient and documenting in the medical record. Orders: Orders PT Evaluation and Treatment Today M17.11 - Unilateral primary osteoarthritis, right knee Referrals Vascular Surgery Referral I83.813 - Varicose veins of bilateral lower extremities with pain Coding Level of Care Code Est Pt Level 3 (26766) Diagnoses Arthritis of right knee M17.11
[2023-12-30 13:52] VITALS: BMI 24.1
== END 2023-12-30 14:05 | disposition home or self-care (01) ==
PROVIDERS: PCP Internal Medicine; Visit Provider Orthopaedic Surgery
DX: M17.11 Unilateral primary osteoarthritis, right knee (principal)
CPT/HCPCS: 99213

== ENCOUNTER → 2023-12-30 13:39 | Outpatient (BNVA) | payer MEDICARE, SELFPAY | PROVIDERS: PCP Internal Medicine; Visit Provider Orthopaedic Surgery | DX: M17.11 Unilateral primary osteoarthritis, right knee (principal); I83.813 Varicose veins of bilateral lower extremities with pain | CPT/HCPCS: 99212 ==

== ENCOUNTER 2024-02-22 11:00 | Outpatient (RCR) | payer MEDICARE, SELFPAY | END 2024-09-29 08:26 | disposition home or self-care (01) | LOC: HO.PT 11:00 | PROVIDERS: PCP Physician Assistant Medical; Visit Provider Orthopaedic Surgery | DX: M17.11 Unilateral primary osteoarthritis, right knee (principal) | CPT/HCPCS: 97110; 97112; 97161; 97530 ==

== ENCOUNTER 2024-03-21 13:23 | Outpatient (AMB) | payer MEDICARE, SELFPAY ==
[2024-03-21 13:29] VITALS: BMI 24.1
--- NOTE | 2024-03-21 13:29 | A.OFFVIS_ITS ---
<Statement entered by Jovon Shanks MD - 03/21/24 14:44> I have seen and evaluated the patient and agree with history, findings, assessment and plan documented by Thelma Landers PA-c. 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 Pt states that she gets cramping in bilateral LE and VV are large and causing discoloration. 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 She denies any swelling. She states the pain is worse around both ankles but she can get pain up to her thighs. She is also being woken up at night with pain in bilateral lower extremities. She does endorse some numbness and tingling intermittently. She is a former smoker (quit in 1966 and only smoked a little for about 6-7y) and is a non-diabetic. She states the pain sometimes wakes her up at night and the pain can be located in either leg, both legs, and either upper or lower legs. PFSH Medical History Nocturia Urgency of micturition Urge incontinence Cystitis cystica Overactive bladder Urge incontinence H/O urinary frequency Surgical History Hx of cholecystectomy Hx of hysterectomy Hx of colonoscopy Family History Maternal Aunt Colon cancer Social History Alcohol intake: never Patient Tobacco Use Status: Former Tobacco user Current occupational status: retired Current occupation: Right hand dominate Review of Systems Const Reports as per HPI and Denies weakness ENT Reports Normal hearing present and Denies dizziness Card Reports as per HPI, Denies chest pain, Denies chest pain at rest, Denies chest pain with activity, Denies dyspnea and Denies dyspnea on exertion Resp Reports as per HPI, Denies cough, Denies dyspnea and Denies dyspnea on exertion GI Reports as per HPI, Denies abdominal pain, Denies nausea and Denies vomiting Musc Denies numbness Skin/Breast Reports as per HPI, Denies erythema, Denies skin swelling, Denies sores and Denies wounds Neuro Reports Normal hearing present, Denies dizziness, Denies numbness, Denies Sensory deficit (Neuro) and Denies weakness Psych Reports no additional complaints Endo Reports no additional complaints Physical Exam Vital Signs: BMI result Body Mass Index 24.1 Const General: healthy appearing and no acute distress Orientation/consciousness: patient oriented x3 HEENT Head: Yes normal to inspection Ears: hearing grossly normal bilaterally Mouth: Normal oral and palatal mucosa present Resp Effort & Inspection: normal respiratory effort and able to speak in complete sentences Auscultation: clear to auscultation bilaterally Cardio Jugular venous distension: no JVD Rate: regular rate Rhythm: regular rhythm Heart sounds: S1 normal heart sound present and S2 normal heart sound present Bruits: no abdominal aortic bruits, no carotid bruits, no femoral bruits and no renal bruits Peripheral pulses: Peripheral pulses 2+ throughout GI Inspection: Yes normal to inspection Palpation (GI): No Abdominal aortic bruit present Skin Other: Multiple torturous veins noted throughout bilateral lower extremities. Right slightly more than left. +palpable DP and PT pulses bilaterally. No skin discoloration/erythema/bruising/wounds noted. CEAP: C -C2 E - primary etiology A - bilateral lower extremities, R>L P - venous insufficiency General skin exam: no rashes or lesions noted Wounds: no wounds Hair: normal Neuro General: patient oriented x3 Cranial nerves: Yes Normal hearing present Cognition (Neuro): normal cognition Gait exam (Neuro): Normal gait present Motor exam (neuro): 5/5 motor strength present throughout Sensory Exam: No Sensory deficit (Neuro) Extrem General: Yes normal to inspection, Yes full ROM, Yes capillary refill normal and Yes normal gait Assessment & Plan Assessment & Plan (1) Varicose veins of right lower extremity with inflammation: Code(s): I83.11 - Varicose veins of right lower extremity with inflammation Category: Medical Plan Smita is presenting today with concerns for ongoing bilateral lower extremity intermittent pain, mostly around her ankles. She is referred by Dr Hdz, who is currently seeing her for ongoing right knee pain. She states she has always had varicose veins/bulging veins in her right lower leg but she has been noticing her left lower leg getting more bulging veins. She states she is able to walk more than 2 blocks without difficulty and states the only thing that hurts when she is walking/after walking is her ankles. She denies any heaviness or fatigue in her legs. We discussed conservative treatment options including compression stockings, elevation, and walking/ambulation/exercise. Due to the concerns of venous insufficiency, we have ordered an US and will have her follow up with us after the US is complete. The pt is in agreement with the treatment plan. We discussed that they will reach out to her to schedule the US and then she will need to follow up with us after. Thank you for allowing us to assist in her care. If there are any questions or concerns please do not hesitate to contact us. Orders: Orders US venous duplex LE BI 1 Week I83.11 - Varicose veins of right lower extremity with inflammation Coding Level of Care Code New Pt New Pt Level 4 (99735) New Pt Complex EM visit Add On G2211 Patient Type New Diagnoses Varicose veins of right lower extremity with inflammation I83.11 Time Spent (min) 35
== END 2024-03-21 14:03 | disposition home or self-care (01) ==
PROVIDERS: PCP Physician Assistant Medical; Visit Provider Physician Assistant Surgical
DX: I83.11 Varicose veins of right lower extremity with inflammation (principal)
CPT/HCPCS: 99203; G2211

== ENCOUNTER → 2024-03-21 13:23 | Outpatient (BNVA) | payer MEDICARE, SELFPAY | PROVIDERS: PCP Physician Assistant Medical; Visit Provider Surgery Vascular Surgery | DX: I83.813 Varicose veins of bilateral lower extremities with pain (principal); I83.11 Varicose veins of right lower extremity with inflammation | CPT/HCPCS: 99202 ==

== ENCOUNTER 2024-03-30 13:26 | Outpatient (AMB) | payer MEDICARE, SELFPAY ==
[2024-03-30 13:30] VITALS: BMI 24.1
--- NOTE | 2024-03-30 13:30 | A.OFFVIS_ITS ---
Vital Signs 03/30/24 13:30 Height 5 ft 3 in Weight 136 lb BMI 24.1 Intake Visit Reasons: OV- Right knee pain Intake Note: Smita is a 88 year old female who presents with complaints of mild intermittent discomfort in her right knee. The patient has completed formal physical therapy. She states that she got fairly good relief from the therapy. She continues with her home exercise program. She denies any locking or giving way. She does take Tylenol which gives her fairly good relief. Allergies Iodinated Contrast Media [IV Dye, Iodine Containing] Allergy (Mild, Verified 03/30/24 13:30) FACIAL SWELLING codeine Allergy (Unknown, Uncoded 03/21/24 13:33) N&V IVP dye Allergy (Unknown, Uncoded 03/21/24 13:33) hives, urticaria Medication List - Last Reconciled 03/30/24 by Garrett Hdz MD aspirin 81 mg PO DAILY atorvastatin 20 mg PO DAILY omeprazole 20 mg PO DAILY ondansetron 4 mg PO Q8H PRN 7 days tramadol 50 mg PO TID PRN PFSH Medical History Nocturia Urgency of micturition Urge incontinence Cystitis cystica Overactive bladder Urge incontinence H/O urinary frequency Surgical History Hx of cholecystectomy Hx of hysterectomy Hx of colonoscopy Family History Maternal Aunt Colon cancer Social History Alcohol intake: never Patient Tobacco Use Status: Former Tobacco user Current occupational status: retired Current occupation: Right hand dominate Physical Exam Vital Signs: BMI result Body Mass Index 24.1 Const Other: Well-nourished well-developed very friendly female awake alert and oriented x3 in no acute distress Extrem Other: Bilateral lower extremity examination shows good capillary refill, no skin lesions noted, normal sensation light touch Right knee examination shows a minimal effusion, mild crepitus with range of motion, mild discomfort with range of motion, no instability Assessment & Plan Assessment & Plan (1) Arthritis of right knee: Code(s): M17.11 - Unilateral primary osteoarthritis, right knee Category: Medical Plan Ms. Escobar presents with intermittent right knee discomfort due to early degenerative joint disease. I had a lengthy discussion with the patient regarding the treatment options. At this point the patient's symptoms are tolerable to her. We will hold off on a cortisone injection. She will continue with her home physical therapy exercises. She will follow up with me on an as- needed basis should her symptoms worsen in any way. Feel free to call me at any time should questions regarding her orthopedic management arise. I spent 22 minutes in reviewing the patient's records and imaging studies, seeing the patient and documenting in the medical record. Coding Level of Care Code Est Pt Level 3 (16177) Complex EM visit Add On G2211 Diagnoses Arthritis of right knee M17.11
== END 2024-03-30 13:51 | disposition home or self-care (01) ==
PROVIDERS: PCP Internal Medicine; Visit Provider Orthopaedic Surgery
DX: M17.11 Unilateral primary osteoarthritis, right knee (principal)
CPT/HCPCS: 99213; G2211

== ENCOUNTER → 2024-03-30 13:26 | Outpatient (BNVA) | payer MEDICARE, SELFPAY | PROVIDERS: PCP Internal Medicine; Visit Provider Orthopaedic Surgery | DX: M17.11 Unilateral primary osteoarthritis, right knee (principal) | CPT/HCPCS: 99212 ==

== ENCOUNTER 2024-05-05 10:20 | Outpatient (REF) | payer MEDICARE, SELFPAY | END 2024-05-05 10:21 | disposition home or self-care (01) | LOC: HO.US 10:20 | PROVIDERS: PCP Internal Medicine; Visit Provider Physician Assistant Surgical | DX: I83.11 Varicose veins of right lower extremity with inflammation (principal) | CPT/HCPCS: 93970 ==

== ENCOUNTER 2024-05-18 09:46 | Outpatient (AMB) | payer MEDICARE, SELFPAY ==
[2024-05-18 09:50] VITALS: BMI 24.1
--- NOTE | 2024-05-18 09:50 | MHC.OFFVIS ---
Vital Signs 05/18/24 09:50 Height 5 ft 3 in Weight 136 lb BMI 24.1 Intake Visit Reasons: follow up s/p 05/05/24 Intake Note: follow up [facility] 05/05/24 forbilateral VV a/ discoloration Accompanied by: Self / Same As Patient Allergies Iodinated Contrast Media [IV Dye, Iodine Containing] Allergy (Mild, Verified 05/18/24 09:52) FACIAL SWELLING codeine Allergy (Unknown, Uncoded 05/18/24 09:52) N&V IVP dye Allergy (Unknown, Uncoded 05/18/24 09:52) hives, urticaria HPI HPI follow up s/p [facility] 05/05/24: Details: Smita is presenting today as a follow up to a venous insufficiency ultrasound performed on 05/05/2024. She states she is feeling a little bit better, now that her blood pressure has been controlled. She states she has not been walking as much due to the weather and inability to drive, so she has not been having as much pain in her lower extremities. He does endorse that the wound on her right lower extremity is taking a long time to heal. She has no new concerns this morning. [facility] Medical History Nocturia Urgency of micturition Urge incontinence Cystitis cystica Overactive bladder Urge incontinence H/O urinary frequency Surgical History Hx of cholecystectomy Hx of hysterectomy Hx of colonoscopy Family History Maternal Aunt Colon cancer Social History Alcohol intake: never Patient Tobacco Use Status: Former Tobacco user Current occupational status: retired Current occupation: Right hand dominate Review of Systems Const Reports as per HPI and Denies weakness ENT Reports Normal hearing present and Denies dizziness Card Reports as per HPI, Denies chest pain, Denies chest pain at rest, Denies chest pain with activity, Denies dyspnea and Denies dyspnea on exertion Resp Reports as per HPI, Denies cough, Denies dyspnea and Denies dyspnea on exertion GI Reports as per HPI, Denies abdominal pain, Denies nausea and Denies vomiting Musc Denies numbness Skin/Breast Reports as per HPI, Denies erythema and Denies wounds Neuro Reports Normal hearing present, Denies dizziness, Denies numbness, Denies Sensory deficit (Neuro) and Denies weakness Psych Reports no additional complaints Endo Reports no additional complaints Physical Exam Vital Signs: BMI result Body Mass Index 24.1 Const General: healthy appearing and no acute distress Orientation/consciousness: patient oriented x3 HEENT Head: Yes normal to inspection Ears: hearing grossly normal bilaterally Mouth: Normal oral and palatal mucosa present Resp Effort & Inspection: normal respiratory effort and able to speak in complete sentences Auscultation: clear to auscultation bilaterally Cardio Jugular venous distension: no JVD Rate: regular rate Rhythm: regular rhythm Heart sounds: S1 normal heart sound present and S2 normal heart sound present Bruits: no abdominal aortic bruits, no carotid bruits, no femoral bruits and no renal bruits Peripheral pulses: Peripheral pulses 2+ throughout GI Inspection: Yes normal to inspection Palpation (GI): No Abdominal aortic bruit present Skin General skin exam: no rashes or lesions noted Wounds: no wounds Hair: normal Neuro General: patient oriented x3 Cranial nerves: Yes Normal hearing present Cognition (Neuro): normal cognition Gait exam (Neuro): Normal gait present Motor exam (neuro): 5/5 motor strength present throughout Sensory Exam: No Sensory deficit (Neuro) Extrem Other: Multiple torturous veins noted throughout bilateral lower extremities. Right slightly more than left. +palpable DP and PT pulses bilaterally. No skin discoloration/erythema/bruising/wounds noted. RLE: wound healing, no open areas. Slight erythema/discoloration, not warm, surrounding the old wound General: Yes normal to inspection, Yes full ROM, Yes capillary refill normal and Yes normal gait Results Reviewed Results Reviewed: Brief summary of venous insufficiency testing is as follows: right great saphenous vein: negative right small saphenous vein: negative right accessory vein: none present left great saphenous vein: negative left small saphenous vein: negative left accessory vein: none present Please note there is no evidence of any venous aneurysms or significant tortuosity Assessment & Plan Assessment & Plan (1) Varicose veins of bilateral lower extremities with pain: Code(s): I83.813 - Varicose veins of bilateral lower extremities with pain Category: Medical Plan: Smita is presenting today as a follow up to her venous insufficiency ultrasound performed on 05/05/2024. She states the pain in her lower extremities is not as bad; however, she has not been walking as much as she usually does. We had a lengthy discussion about her ultrasound, which revealed no venous insufficiency. We discussed that due to the tortuosities and the ongoing pain, we could perform a microphlebectomy in the office. We discussed the complications of the procedure as well as the procedure itself. She was able to ask questions and I was able to answer them completely. She states at this point she is not sure if she wants to have the procedure done. I discussed with her that she is a patient of this office now and she can make the decision and then reach out to us with her answers. We discussed that it may not completely relieve all the pain and swelling that she has been having, but it could relief some of it. We did discuss continued control of her blood pressure, healthy well-balanced diet, and continuing with her physical activity/walking. We discussed continuing with compression stockings and elevation daily. We did provide her with another sheet for compression stockings. We asked her to reach out to us whenever she made a decision. If there are any questions or concerns, please do not hesitate to reach out to us. Coding Level of Care Code Est Pt Level 4 (20082) Diagnoses Varicose veins of bilateral lower extremities with pain I83.813 Comment Review of venous insufficiency ultrasound, discussion of treatment plan
--- OUTSIDE RECORDS SUMMARY | 2024-05-24 01:05 | XMS_ITS ---
[facility] Address [address] [place] [address] Care Team Providers Care Commercial Art Instructor Name Role Phone Ulices Oliveros Primary Care Provider Unav ailable Shade Timmons Unavailable [phone] Jossie El Unavailable [phone] REASON FOR VISIT Seen Sooner Encounters Encounter Location Date Provider Diagnosis [facility] [address] [place] [address] 03/24/2024 Jossie El Plan Of Treatment No Information Progress Notes * Smita ESCOBARDOB: (88 yo F)Acc No.[id number]:03/24/2024 Progress Notes Patient:?Smita ESCOBAR Provider:?Jossie El DPM :1935???Age:88 Y???Sex:Female D ate:03/24/2024 Address:[address] [place] [address] [facility] Pcp:MIESHA Park Subjective: * Chief Complaints: * ???1. Seen Sooner. * Medical History:? Objective: * Vitals:? Assessment: Plan: * Treatment: * Images: * The named appointment provid er may or may not be the originator of this progress note, and it is not deemed complete until electronically signed by the appointment provider. Sign off status: Pending * Provider:?Jossie El DPM Date:?1 Generated for Osmin arguelles/Sven/Lisaitting on:?05/24/2024 01:05 AM EST
--- OUTSIDE RECORDS SUMMARY | 2024-05-24 01:06 | XMS_ITS ---
[facility] Organization [facility] Address [address] [place] [address] Care Team Providers Care Fishing Instructor Name Role Phone Ulices Oliveros Primary Care Provider Unav ailShade Chavez [phone] REASON FOR VISIT Quantum Encounters Encounter Location Date Provider Diagnosis [facility] [address] [place] [address] 03/08/2024 Shade Timmons Plan Of Treatment No Information Progress Notes * Smita ESCOBARDOB: 6 (88 yo F)Acc No.[id number]:03/08/2024 Patient:?Smita Escobar :1935???Age:88 Y???Sex:Female Address:[address] [place] [address] [facility] [place], [address] * true * Date:? Generated for Printi blane/Sven/eTransmitting on:?05/24/2024 01:05 AM EST
--- OUTSIDE RECORDS SUMMARY | 2024-05-24 01:06 | XMS_ITS | Patient Health Record ---
Author [facility] Address [address] [facility] [place] [address] Care Team Providers Care Imaging Analyst Name Role Phone Ulices Oliveros Primary Care Provider Unav ailable Shade Timmons Unavailable [phone] NikkoJossie Unavailable [phone] Allergies Allergen (clinical drug ingredient) Drug/Non Drug Allergy documented on EMR Reaction Allergy Type Onset Date Status Iodine Unknown Drug Allergy Active morphine Morphine sick Drug Allergy Active Reason For Referral No Information Medications Medication SIG (Take, Route, Frequency, Duration) Notes Start Date End Date Status Aspirin 81 MG 1 tablet Orally Once a day for 30 day(s) Active Losartan Potassium 25 MG TAKE 1 TABLET B Y MOUTH DAILY Oral for 90 Active Atorvastatin Calcium 20 MG Oral for 90 Active traMADol HCl 50 MG TAKE 1 TABLET BY NABEEL TH BACK EVERY 8 HOURS NEEDED FOR PAIN OR ARTHRITIS Oral for 28 Active Doxycycline Hyclate 100 MG 1 capsule Ora lly Once a day for 10 day(s) 03/08/2024 Active Social History Tobacco Use: Social History Observation Description Date Details (start date - stop date) Former Smoker NA - NA Tobacco Use/Smoking Question Answer Notes Are you a: former smoker Additional Findings: Tobacco Non-User Current no n-smoker Alcohol Screen Question Answer Notes Did you have a drink containing alcohol in the p ast year? No Points 0 Interpretation Negative Tobacco use other than smoking: Question Answer Notes Are you an other tobacco user? No Vital Signs Height 5ft3in in 03/23/2024 Weight 39 lbs 03/23/2024 BMI 6.91 kg/m2 03/23/2024 Procedures Procedure Date Ordered Date Performed Result Body Sit e [address]055- I&D ABSCESS-COMPLICATED,MULTI 03/08/2024 N/A Encounters Encounter Location Date Provider Diagnosis [facility] [address] 03/08/2024 Shade Timmons Skin disease L98.9 ; Tinea unguium B35.1 ; Pain in left toe(s) M79.675 and Abscess of toe of left foot L02.612 [facility] [address] 03/23/2024 Shade Timmons Skin disease L98.9 ; Tinea unguium B35.1 and Pain in left toe(s) M79.[address] [address] 03/08/2024 Jossie El [address] [address] 03/08/2024 Shade Timmons Assessments Encounter Date Diagnosis (ICD Code) Assessment Notes Treatment Notes Treatment Clinical Notes Section Notes 03/08/2024 Tinea unguium (ICD-10 - B35.1) 03/08/2024 Skin disease (ICD-10 - L98.9) 03/23/2024 Tinea unguium (ICD-10 - B35.1) 03/23/2024 Skin disease (ICD-10 - L98.9) 03/08/2024 Pain in left toe(s) (ICD-10 - M79.675) 03/23/2024 Pain in left toe(s) (ICD-10 - M79.675) 03/08/2024 Abscess of toe of left foot (ICD-10 - L02.612) Plan Of Treatment Pending Test Test Name Order Date - I&D ABSCESS-COMPLICATED,MULTI Insurance Providers Payer Name Payer Address Payer Phone Subscriber Number Group Number Insured Name Patient Relationship to Insured Coverage Start Date Coverage End Date Medicare National Govt Svcs Inc [address] [place] [address] [id number] Smita Escobar Self - patient is the insured [employer] [address] [place] [address] [id number] Smita Escobar Self - patient is the insured Medical (General) History Medical History History ICD Code Arthritis Back,Hip,and Knee pain covid-19 High Blood Pressure Poor circulation Chicken pox Measles Mumps Surgical History Surgery Date(Month/Year) cholecystectomy hysterectomy
--- OUTSIDE RECORDS SUMMARY | 2024-05-24 01:06 | XMS_ITS ---
Author Organization [facility] Address [address] [place] [address] Care Team Providers Care Merchandising Assistant Name Role Phone Ulices Oliveros Primary Care Provider Unav Shade Kaur Unavailable [phone] Allergies Allergen (clinical drug ingredient) Drug/Non Drug Allergy documented on EMR Reaction Allergy Type Onset Date Status Iodine Unknown Drug Allergy Active morphine Morphine sick Drug Allergy Active REASON FOR VISIT Pcp-03/20/24 Medications Medication SIG (Take, Route, Frequency, Duration) [...] Additional Findings: Tobacco Non-User Current no n-smoker Tobacco use other than smoking: Question Answer Notes Are you an other tobacco user? No Vital Signs Height 5ft3in in 03/23/2024 Weight 39 lbs 03/23/2024 BMI 6.91 kg/m2 03/23/2024 Encounters Encounter Location Date Provider Diagnosis [facility] [address] [place] [address] 03/23/2024 Shade Timmons Skin disease L98.9 ; Tinea unguium B35.1 and Pain in left toe(s) M79.675 Assessments Encounter Date Diagnosis (ICD Code) Assessment Notes Treatment Notes Treatment Clinical Notes Section Notes 03/23/2024 Skin disease (ICD-10 - L98.9) 03/23/2024 Tinea unguium (ICD-10 - B35.1) 03/23/2024 Pain in left toe(s) (ICD-10 - M79.675) Plan Of Treatment Next Appt Details Follow Up: prn, Reason: Progress Notes * Smita ESCOBARDOB: 6 (88 yo F)Acc No.[id number]:03/23/2024 Progress Notes Patient:?Smita Escobar Provider:?Shade Timmons DPM :1935???Age:88 Y???Sex:Female D ate:03/23/2024 Address:[address] [place], [place] [address] Pcp:MIESHA Park Subjective: * Chief Complaints: * ???Pcp-03/20/24 * HPI: ???Skin problems:?Nature:?bleeding, aching, discolored.?Location:?Left, 1st.?Course:?improved.? * ROS:?General/Constitutional:?Nausea?denies.?Vomiting?denies.?Hunger Thirst?denies.?Loss appetite?denies.?Chills?denies.?Fatigue?denies.?Fever?denies.?Night Sweats?denies.?Unexplained weight loss?denies.?Unexplained weight gain?denies.?HEENTM:?Dentures?denies.?Dizziness?denies.?Glasses/contacts?denies.?Retinopathy?de nies.?Blurred/double vision?denies.?TMJ?denies.?Discharge/drainage?denies.?Implants?denies.?Sore throat?denies.?Dental implants?denies.?Hard of hearing ?denies.?Difficulty chewing/swallowing/speaking?denies.?Nose bleeds?denies.?Sore mouth?denies.?Respiratory:?On Oxygen?denies.?Pneumonia/pleurisy?denies.?Bronchitis?denies.?Emphysema?denies.?C oughing?denies.?Cough blood?denies.?Shortness of breath?denies.?Wheezing?denies.?Cardiovascular:?Pacemaker?denies.?MVP?denies.?WPW?denies.?CHF?denies.?Heart attack?denies.?Septal defect?denies.?Rapid beat?denies.?Chest pain ?denies.?Atrial Fib.?denies.?Murmur/Palpitations?denies.?Gastrointestinal:?Hemorrhoids?denies.?Stomach/Abdominal pain?denies.?Dark blood stool?denies.?Irritable bowel ?denies.?Constipation?denies.?Diarrhea?denies.?Hematology:?Swelling?denies.?Clots?denies.?Varicose Veins?denies.?Bruising?denies.?Bleeding problem?denies.?Genitourinary:?Blood urine?denies.?Frequent/Painfu/urination/bladder control?denies.?Kidney stones?denies.?Infection (UTI)?denies.?Nephropathy?denies.?sex trans dis (STD)?denies.?Prostate?denies.?Musculoskeletal:?Hammertoes?denies.?Bunions?denies.?Back Pain?denies.?Muscle Cramps/ Resting?denies.?Muscle cramps / walking?denies.?Generalized aches and pains?denies.?Weakness?denies.?Integ.:?Diaz?denies.?Scars?denies.?Corns/calluses?denies.?Ingrown nails?denies.?Painful nails?denies.?Open Sores?denies.?Rashes?denies.?Neurologic:?Difficulty sleeping?denies.?Brain disorder?denies.?Numbness?denies.?Balance trouble?denies.?Confusion?denies.?Fainting/blackouts?denies.?Tingling?denies.?Tr emors?denies.? * Medical History:? * Surgical History:?cholecyste ctomy hysterectomy * Hospitalization/Major Diagno stic Procedure:?Denies Past Hospitalization * Family History:?Father: diag nosed with Other malignant neoplasm of unspecified site.?Siblings: diagnosed with Diabetic - NIDDM, Other malignant neoplasm of unspecified site.?Children: diagnosed with Diabetic - NIDDM.? * Social History:?Tobacco Use:?Tobacco Use/Smoking?Are you a:?former smoker ?Additional Findings: Tobacco Non-User?Current non-smoker ?Tobacco use other than smoking?Are you an other tobacco user??No ???Miscellaneous:?Caffeine: yes, frequency:, 1-2 cups per day. ?Children: yes, 4. ?no Exercise. ?Marital status: ,. ?Occupation: Retired. * Medications:?TakingAspirin 8 1 MG Tablet Chewable 1 tablet Orally Once a dayLosartan Potassium 25 MG Tablet TAKE 1 TABLET BY MOUTH DAILY Oral Atorvastatin Calcium 20 MG Tablet Oral traMADol HCl 50 MG Tablet TAKE 1 TABLET BY MOUTH BACK EVERY 8 HOURS NEEDED FOR PAIN OR ARTHRITIS Oral Doxycycline Hyclate 100 MG Capsule 1 capsule Orally Once a dayMedication List reviewed and reconciled with the patientTaking Aspirin 81 MG Tablet Chewable 1 tablet Orally Once a dayTaking Losartan Potassium 25 MG Tablet TAKE 1 TABLET BY MOUTH DAILY Oral Taking Atorvastatin Calcium 20 MG Tablet Oral Taking traMADol HCl 50 MG Tablet TAKE 1 TABLET BY MOUTH BACK EVERY 8 HOURS NEEDED FOR PAIN OR ARTHRITIS Oral Taking Doxycycline Hyclate 100 MG Capsule 1 capsule Orally Once a dayMedication List reviewed and reconciled with the patient * Allergies:?Morphine: sickIod ineyes[Allergies Verified] Objective: * Vitals:?Ht: 5ft3in, Wt: 39, BMI: 6.91, Shoe size: 8, Ht-cm: 160.02 cm, Wt-k.69 kg. * Examination: ???Dermatologic: ?SKIN FINDINGS:?Skin exam reveals normal texture, elasticity, and tugor. There are no masses. The interspaces are clear.?ULCER:? LOCATION--dorsum ta, well healed.?General Examination: ?GENERAL APPEARANCE:?pleasant, alert, well nourished, well developed, well hydrated, with good attention to hygene/body habitus, and in no acute distress.?ORIENTED:?person,place, and time.?Neurological: ?SENSORY:?neurological exam reveals intact sensorium, pain sensation normal, vibration sensation intact, pinprick sensation is normal in the lower extremities, anesthesia, burning, tingling, B/L.?Vascular: ?DP PULSES(B):?2/4, B/L.?PT PULSES(B):?2/4, B/L.?CAPILLARY FILL TIME:?3 secs. per digit. B/L.?TROPHIC CONDITION-TEXTURE/ELASTICITY/TURGOR/HAIR GROWTH(B):?normal, B/L.?TEMPERTURE GRADIENT(C):?normal, B/L.?PIGMENTATION:?normal, B/L.?EDEMA(C):?absent, B/L.?TELANGECTASIA:?absent, B/L.?Orthopedic: ?MUSCLE STRENGTH:?5/5 all groups in a symmetrical fashion , B/L.?Nails: ?NAILS are:?Elongated, overgrown, dystrophic, lytic, greater than 3mm thick, discolored and friable with crumbly malodorous subungual debris, 1-5 Right foot, T1.? Assessment: * Assessment: 1.?Tinea unguium - B35.1?2.? Skin disease - L98.9 (Primary)?3.?Pain in left toe(s) - M79.675? Plan: * Treatment: * Procedure Codes:? * Preventive Medicine:? ??Counseling:?Biopsy Follow-Up:?Biopsy Results (All components):?Reviewed with patient, Tracking process documented ?Discussion:?-13: Office or other outpatient visit for the evaluation and management of an established patient, which required a medically appropriate history and/or examination and LOW level of DECISION MAKING for: 1 STABLE ACUTE UNCOMPLICATED PROBLEM, 2 OR MORE MINOR PROBLEMS, OR 1 STABLE CHRONIC PROBLEM, THAT POSE(S) A LOW RISK FOR MORBIDITY/MORTALITY. The visit on the day of the encounter encompassed interpreting the data and educating the patient as to the nature of their condition, treatment options available according to their individual PMH, meds, allergies, and overall health/living conditions, as well as any potential risks or complications that may occur from a failure to adhere to, and participate in, the recommended course of therapy. The discussion included a complete verbal, and/or written explanation of the examination results, any x-rays taken, the proposed diagnosis, and outline of the treatment plan. A schedule for future care needs was also explained. The patient verbalized an understanding of the instructions at this time and agreed to be an active participant in their treatment. If the patient should think of any questions or concerns after the visit, I have encouraged the patient to call the office.?Fungal Nail Counseling:?The patient was counseled on the diagnosis, potential etiologies (including, but not limited to, environmental factors, genetic, immune deficiency), and the multiple treatment options for Onychomycosis. We discussed the risks and benefits of each option from performing no treatment, to ultraviolet light shoe treatment, to laser nail treatment, to applying topical antifungals, to taking oral antifungal medication, to surgical removal of the involved nail(s) with or without performing a matricectomy, or any combination thereof. We discussed the advantages and disadvantages of each of possible treatment and importance for adherence to all the recommended therapies for optimum success. This includes the necessity for weekly emery board self nail home debridements, and control the nail and skin environment as much as possible by only using a fresh, dry pair of shoes/socks each day, as well as keeping the skin as dry as possible through the use of sprays/powders if necessary. The patient was instructed to discard the emery board after use to prevent reinfection of the involved nail(s). We discussed the mycological and visual clinical effectiveness of topical vs oral antifungal treatments as well as each ones potential side effects and/or any patient- specific medication interactions. We discussed the reasons behind the important requirement of regular liver function testing with oral antifungal therapy for safety. Patient questions regarding use, dosage, successful outcomes, blood tests, and possible pharmaceutical interactions were reviewed and the patient verbalized that all answers were clearly understood, The patient presently prefers topical treatment--vicks qd hs bart feet.? * Follow Up:?prn * Images: * Sign off status: Completed true * Provider:?Shade Timmons DPM Date:? 024 Generated for Osmin arguelles/Sven/Danaransmitting on:?05/24/2024 01:05 AM EST History and Physical Notes * HPI (History of Present Illness) Category Sub-Category Detail Notes Category Not es Skin problems Nature: bleeding, aching, discolore d Location: Left, 1st Course: improved Examination Category Sub-Category Detail Notes Category Not es Neurological SENSORY: neurological exa m reveals intact sensorium, pain sensation normal, vibration sensation intact, pinprick sensation is normal in the lower extremities, anesthesia, burning, tingling, B/L Dermatologic SKIN FINDINGS: Skin exam reveal s normal texture, elasticity, and tugor. There are no masses. The interspaces are clear ULCER: LOCATION--dorsum ta, well healed Orthopedic MUSCLE STRENGTH: 5/5 all groups in a symm etrical fashion , B/L General Examination GENERAL APPEARANCE: pleasant , alert, well nourished, well developed, well hydrated, with good attention to hygene/body habitus, and in no acute distress ORIENTED: person,place, and ti me Vascular DP PULSES(B): 2/4, B/L PT PULSES(B): 2/4, B/L CAPILLARY FILL TIME: 3 secs. per digit. B/L TEMPERTURE GRADIENT(C): normal, B/L TROPHIC CONDITION-TEXTURE/ELASTICITY/TUR GOR/HAIR GROWTH(B): normal, B/L EDEMA(C): absent, B/L TELANGECTASIA: absent, B/L PIGMENTATION: normal, B/L Nails NAILS are: Elongated, overg rown, dystrophic, lytic, greater than 3mm thick, discolored and friable with crumbly malodorous subungual debris, 1-5 Right foot, T1
== END 2024-05-18 10:44 | disposition home or self-care (01) ==
PROVIDERS: PCP Internal Medicine; Visit Provider Physician Assistant Surgical
DX: I83.813 Varicose veins of bilateral lower extremities with pain (principal)
CPT/HCPCS: 99214

== ENCOUNTER → 2024-05-18 09:46 | Outpatient (BNVA) | payer MEDICARE, SELFPAY | PROVIDERS: PCP Internal Medicine; Visit Provider Physician Assistant Surgical | DX: I83.813 Varicose veins of bilateral lower extremities with pain (principal) | CPT/HCPCS: 99212 ==

== ENCOUNTER 2024-12-18 07:59 | Emergency (ER) | payer MEDICARE, SELFPAY ==
--- NOTE | ~2024-12-18 | XR_ITS ---
EXAMINATION: XR CHEST CLINICAL INFORMATION: CP COMPARISON: 10/29/2019. TECHNIQUE: Frontal view of the chest was obtained. FINDINGS: Minimally elevated left hemidiaphragm, unchanged. The cardiac, hilar, and mediastinal contours are normal. Aortic mural calcifications. Lungs demonstrate mild linear changes in the left lung base, likely discoid atelectasis. Mild apical pleural parenchymal scarring. Lungs are otherwise clear. No pneumothorax or effusion. No focal osseous or soft tissue abnormality. XR/XR chest 1V IMPRESSION: No definite active pulmonary disease. Mild discoid type atelectasis left lung base. Electronically signed by: Daniel Duff MD 12/18/2024 09:27 AM EDT
--- NOTE | 2024-12-18 08:06 | ECG_ITS ---
Test Reason : CHEST PAIN Blood Pressure : */* mmHG Vent. Rate : 67 BPM Atrial Rate : 67 BPM P-R Int : 194 ms QRS Dur : 82 ms QT Int : 400 ms P-R-T Axes : 58 36 63 degrees QTcB Int : 422 ms Normal sinus rhythm Normal ECG When compared with ECG of 09-Feb-2009 07:50, No significant changes seen Referred By: Generic ED Physician Electronically Signed By: Teja Cazares
[2024-12-18 08:29] VITALS: BP 148/59; PULSE 68; RESP 18; TEMP 36.3; O2SAT 98; BMI 26.4
[2024-12-18 08:38] VITALS: BP 148/59; PULSE 68; RESP 18; TEMP 36.3; O2SAT 98
[2024-12-18 08:39] VITALS: PULSE 66
--- NOTE | 2024-12-18 08:58 | PC.NURSE ---
89 F presents to ED with upper chest/bilat shoulder pain and difficulty swallowing since this am. Pt sts recent tongue swelling on a couple of ocassionals, unknown origin. Pt sts on losartan for BP x 2 months. A+Ox4. Pt had a recent fall and was seen. RR even and unlabored. Pt denies SOB.
--- NOTE | 2024-12-18 09:06 | ED_ITS ---
HPI - Chest Pain General Chief Complaint: Chest Pain Stated Complaint: SOB, chest pain Time Seen by Provider: 12/18/24 08:58 Source: patient Mode of arrival: ambulatory Limitations: no limitations History of Present Illness ED Provider: Lisa Lopez PA-C HPI narrative: 89 yo male with history of GERD, overactive bladder, HTN who presents to the ER for evaluation of acute onset of upper chest pain and difficulty swallowing that started at 530am. Patient states the pain was described as ?heavy? and involved her upper chest and neck. She went to the kitchen to try to get Tylenol and was having a difficult time swallowing the pill. She states it took her several attempts to swallow the pill and it would not go down. She denies any associated shortness of breath, nausea or diaphoresis. The pain slowly subsided and resolved. Patient reports 2 episodes in the last 1 week of mouth and tongue swelling. She reports 2 weeks ago she had upper lip swelling that eventually resolved. Last week she had severe tongue swelling and took Benadryl with resolution. She was recently started on losartan for blood pressure about 2 months ago. No history of allergic reactions, angioedema. She denies any current mouth, lip or tongue swelling. Able to drink normally now. MD complaint: chest pain Onset (ago): hour(s) Timing of current episode: now resolved Prior episodes: No Onset: during rest Pain location: other (upper anterior chest) Pain radiation: none Severity: severe Quality: heaviness Relieving factors: other (tylenol) Exacerbating factors: nothing Treatment prior to arrival: aspirin Risk Factors Coronary artery disease risk factors: hypertension Thoracic aortic dissection risk factors: none Related Data Home Medications ?Medication ?Instructions ?Recorded ?Confirmed aspirin 81 mg tablet,delayed 81 mg PO DAILY 07/13/22 1 release tramadol 50 mg tablet 50 mg PO TID PRN 07/13/22 atorvastatin 20 mg tablet 20 mg PO DAILY 01/11/2303/14 Previous Rx's ?Medication ?Instructions ?Recorded omeprazole 20 mg capsule,delayed 20 mg PO DAILY #30 ca ps 08/10/22 release ondansetron 4 mg disintegrating 4 mg PO Q8H PRN nausea and 12/14/22 tablet vomiting 7 days #14 tabs amlodipine 2.5 mg tablet (Norvasc) 2.5 mg PO DAILY #30 tabs 12/18/24 Allergies Allergy/AdvReac Type Severity Reaction Status Date / Time Iodinated Contrast Media (IV Allergy Mild FACIAL Verified 12/18/24 08:31 Dye, Iodine Containing) SWELLING codeine Allergy Unknown N&V Uncoded 12/18/24 08:31 IVP dye Allergy Unknown hives, Uncoded 12/18/24 08:31 urticaria Review of Systems 2 Review of Systems: Yes all other systems are reviewed and are negative [facility] Past Medical History Medical History Nocturia Urgency of micturition Urge incontinence Cystitis cystica Overactive bladder Urge incontinence H/O urinary frequency Surgical History Hx of cholecystectomy Hx of hysterectomy Hx of colonoscopy Family History Family History Maternal Aunt Colon cancer Social History Social History Alcohol intake: never Patient Tobacco Use Status: Former Tobacco user Smoked in Last 30 Days: No Use of substances other than those prescribed or required for medical reasons: No Advance Directives: No Advance Directives Information Provided: Yes Do you have a plan to hurt others: No Plan Current occupational status: retired Current occupation: Right hand dominate Physical Exam 2 Vital Signs: Vital Signs: Last Vital Signs Temp 0 F L 12/18/24 12:05 Pulse 63 12/18/24 12:05 Resp 12 12/18/24 12:05 BP 146/62 H 12/18/24 12:05 Pulse Ox 96 12/18/24 11:11 O2 Del Method Room Air 12/18/24 12:05 BMI result Body Mass Index 26.4 Appearance: Alert elderly female sitting up in bed. Oriented X3. No acute distress. Head: normocephalic, atraumatic. Eyes: Pupils equal, round and reactive to light. ENT: Pharynx normal. No tonsillar swelling or exudate. Normal voice, handling secretions normally. Neck: Normal inspection. Neck supple. No anterior neck swelling, trachea midling. no palpable thyroid masses. CVS: Normal heart rate and rhythm. Pulses normal. Nontender anterior chest wall. Respiratory: No respiratory distress. Breath sounds normal. Abdomen: Soft and nontender. +BS x4 Skin: Skin warm and dry. Normal skin color. Normal skin turgor. No rashes. Extremities: No lower extremity edema. No joint swelling. Neuro/psych: Oriented X 3. No motor deficit. No sensory deficit. CN II-XII intact. Normal speech and cognition. Medical Decision Making Medical Decision Making [facility] Narrative: 89-year-old female presents to the ER from home for evaluation of upper anterior chest pain along with dysphagia that occurred this morning at 05:30. Pain did not radiate. She had difficulty swallowing, was eventually able to take Tylenol with resolution of the pain. Also describes to events in the last 2 weeks where she had lip and tongue swelling. Her airway is patent today with no evidence of swelling in her mouth or neck. She is breathing comfortably and chest pain has resolved. Her vital signs are stable. Workup today was reassuring with normal CBC, negative troponin x2, no ischemic changes on her EKG. Doubt cardiac etiology. Given water and she is able to swallow normally. Low suspicion for food bolus or obstruction. She does have a hiatal hernia but x-ray does not show any large hernia in the chest. She was monitored in the ER for several hours and continued to appear well and feel better. We discussed the concerning events at home of the lip and tongue swelling. At this time would advise her to stop her losartan as this is known to have a cross-reactivity with MICHAEL inhibitors and can potentially cause angioedema. Will have her start on low-dose amlodipine for hypertension. She has a blood pressure cuff at home and will monitor her BP. She will follow up with her primary care doctor. She was given strict return precautions in her and her family were given opportunity to ask questions. Comfortable discharge home with her 2 daughters. Differential Diagnosis Differential Diagnoses: The differential diagnosis associated with the presentation includes ACS, PE, angioedema, anxiety, dysphagia, dissection, GERD, hiatial hernia Admission/Observation Consideration of admission/observation: Escalation of care including admission/observation considered Lab Data [facility] Lab Attestation statement: I reviewed the patient's lab results. As above 12/18/24 08:56 12/18/24 08:56 Labs: Lab Results 12/18/24 12/18/24 Range/Units 08:56 11:11 WBC 5.6 (4.8-10.8) X10*3/uL RBC 4.80 (4.20-5.50) X10*6/uL Hgb 13.7 (12.0-16.0) g/dl Hct 42.4 (37.0-47.0) % MCV 88.3 (80.0-98.0) fL MCH 28.5 (27.0-33.0) pg MCHC 32.3 (31.0-35.0) g/dl RDW 13.1 (11.0-16.0) % Plt Count 207 (160-400) X10*3/uL MPV 11.4 (9.4-12.3) fL Immature Gran % (Auto) 0.2 (0.0-0.4) % Neut % (Auto) 47.9 (45-73) % Lymph % (Auto) 39.5 (20-40) % Calvert % (Auto) 7.7 (2-11) % Eos % (Auto) 3.8 (0-4) % Baso % (Auto) 0.9 (0-2) % Lymph # (Auto) 2.2 (1.2-4.9) X10*3/uL Calvert # (Auto) 0.4 (0.1-1.2) X10*3/uL Eos # (Auto) 0.2 (0.0-0.4) X10*3/uL Baso # (Auto) 0.1 (0.0-0.2) X10*3/uL Abs Immat Gran (auto) 0.01 (0.00-0.03) X10*3/uL Absolute Neuts (auto) 2.7 (2.0-8.3) x10*3/uL Absolute Nucleated RBC 0.000 (0.0-0.012) X10*3/uL Nucleated RBC % (auto) 0.0 (0.0-0.2) /100WBC Sodium 140 (135-145) mmol/L Potassium 3.8 (3.3-5.1) mmol/L Chloride 109 H (96-108) mmol/L Carbon Dioxide 26 (22-29) mmol/L Anion Gap 9 L (12-20) BUN 30 H (9-16) mg/dL Creatinine 0.86 (0.5-1.4) mg/dL Estim Creat Clear Calc 40.9 Estimated GFR > 60 Random Glucose 99 (60-115) mg/dL Calcium 8.8 D (8.4-10.2) mg/dL Total Bilirubin 0.3 (0.0-1.0) mg/dL AST 23 (5-31) U/L ALT 19 (0-31) U/L Alkaline Phosphatase 50 (39-117) U/L Troponin I High Sens 4.0 3.3 (<3.5-17.0) ng/L Total Protein 6.3 L (6.5-8.0) g/dL Albumin 3.9 (3.5-5.0) g/dL Independent Interpretation I performed an independent interpretation of an: EKG and Plain X-Ray Interpretation: EKG with normal sinus rhythm, ventricular rate 67 beats per minute, normal QTC, no ST segment elevations or depressions Chest x-ray without any large hiatal hernia into the chest Radiology Impression Discussion of test interpretation with radiology: I have reviewed the radiologist's reading. Independent Historian Clinical information obtained from an independent historian. History obtained from or confirmed by: Other (Adult daughter at the bedside) External Record Review External record reviewed: Outpatient record, Prior outpatient labs and Prior outpatient radiology Tests considered The following testing was considered but not selected: CT scan of the chest and neck were considered however low suspicion for acute emergent process Prescription Management I considered prescription management with: Pain Medication and Other (Antihypertensive) Chronic Conditions Patient?s care impacted by: Hypertension Scores Heart Score History: -0- slightly suspicious ECG: -0- normal Age: -2- > or = 65 Risk factory: -1- 1 or 2 risk factors Troponin: -0- < or = normal limit Score: 3 Risk: 1.7% Critical Care Time Critical Care Time Critical Care Time: No Discharge Plan Discharge Clinical Impression: Atypical chest pain Patient Disposition: Home, Self-Care Instructions: Noncardiac Chest Pain (ED) Additional Instructions: Your lab work, EKG and chest x-ray today were all reassuring Recommend STOPPING your losartan START the newly prescribe amlodipine for your blood pressure Monitor your BP at home once per day and record it for your doctor Call your PCP and let them know you were in the ER and make a follow up appointment If you have ongoing swallowing issues, call your GI doctor for further evaluation If you develop new or worsening symptoms call 911 or come back to the ER for further evaluation. Prescriptions: New amlodipine [Norvasc] 2.5 mg tablet 2.5 mg PO DAILY Qty: 30 1RF No Action tramadol 50 mg tablet 50 mg PO TID PRN aspirin 81 mg tablet,delayed release (DR/EC) 81 mg PO DAILY omeprazole 20 mg capsule,delayed release(DR/EC) 20 mg PO DAILY Qty: 30 0RF ondansetron 4 mg tablet,disintegrating 4 mg PO Q8H PRN (Reason: nausea and vomiting) 7 Days Qty: 14 0RF atorvastatin 20 mg tablet 20 mg PO DAILY Referrals: [facility] [place] [facility] [Provider Group, Gastroenterology] Sanjeev Paredes MD [Primary Care Provider, Medical] Interventions: ED Discharge Assessment Last Done: 12/18/24 12:05 Discharge Date/Time: 12/18/24 12:06 Print Language: Ghanaian
[2024-12-18 09:11] LABS: MANUAL DIFF FLAG NO
[2024-12-18 09:16] LABS: Hematocrit 42.4 % (37.0-47.0); Hemoglobin 13.7 g/dl (12.0-16.0); Imm Gran Abs Auto 0.01 X10*3/uL (0.00-0.03); Imm Gran Pct Auto 0.2 % (0.0-0.4); Lymphocytes Absolute Auto 2.2 X10*3/uL (1.2-4.9); Mean Corpuscular HGB Conc 32.3 g/dl (31.0-35.0); Mean Corpuscular Hemoglobin 28.5 pg (27.0-33.0); Mean Corpuscular Volume 88.3 fL (80.0-98.0); NRBC Abs Auto 0.000 X10*3/uL (0.0-0.012); NRBC Pct Auto 0.0 /100WBC (0.0-0.2); Platelet Count 207 X10*3/uL (160-400); Red Blood Count 4.80 X10*6/uL (4.20-5.50); White Blood Count 5.6 X10*3/uL (4.8-10.8)
[2024-12-18 09:35] LABS: Alanine Aminotransferase 19 U/L (0-31); Albumin Level 3.9 g/dL (3.5-5.0); Alkaline Phosphatase 50 U/L (39-117); Anion Gap 9 (12-20); Aspartate Amino Transferase 23 U/L (5-31); Blood Urea Nitrogen 30 mg/dL (9-16); Calcium 8.8 mg/dL (8.4-10.2); Carbon Dioxide 26 mmol/L (22-29); Chloride 109 mmol/L (96-108); Creatinine Clr Calc Pharmacy 40.9; Estimated Glomerular Filt Rate > 60; Potassium 3.8 mmol/L (3.3-5.1); Sodium 140 mmol/L (135-145); Total Protein 6.3 g/dL (6.5-8.0)
[2024-12-18 09:41] LABS: Troponin-I High Sensitivity 4.0 ng/L (<3.5-17.0)
--- OUTSIDE RECORDS SUMMARY | 2024-12-18 10:34 | XMS_ITS | Clinical Summary ---
Author Organization [facility] [address] [place] [address] Address [address], [place] Phone Care Team Providers Care Development Assistant Name Role Phone Ulices Lopez Primary Care Provider [phone] Allergies Active Allergy Reactions Criticality Noted Date Comments Codeine Nausea And Vomiting 03/29/2007 Iodinated Contrast Media 02/22/2006 Other Reaction(s): Hives/Urticaria Medications doxycycline (VIBRAMYCIN) 100 mg capsule TAKE 1 CAPSULE BY MOUTH DAILY FOR 10 DAYS 4 Active omeprazole (PriLOSEC) [address] capsule Take 1 capsule (20 mg total) by mouth 1 (one) time each day. 90 capsule 3 5 Active traMADoL (ULTRAM) 50 mg tablet Take 1 tablet (50 mg total) by mouth every 6 (six) hours if needed for severe pain. Max Daily Amount: 200 mg 84 tablet 5 Active atorvastatin (LIPITOR) 20 mg tablet TAKE 1 TABLET BY MOUTH DAILY 90 tablet 5 Active losartan (COZAAR) 25 mg tablet TAKE 1 TABLET BY MOUTH DAILY 90 tablet 5 Active losartan (COZAAR) 25 mg tablet TAKE 1 TABLET BY MOUTH DAILY 90 tablet 5 11/28/19 25 Discontinued Active Problems Problem Noted Date Diagnosed Date Mild tricuspid insufficiency 05/13/2023 Anterior ischemic optic neuropathy, right 06/09/ 2023 Elevated LFTs 11/20/2022 Varicose veins with pain 11/20/2022 Bilateral renal cysts 09/05/2021 Seizure disorder ([facility] V24, 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 Actinic keratosis 01/18/2014 Overview (05/24/2024): Actinic keratosis Pain in joint, lower leg 02/22/2006 Encounters Date Type Department Care Team Description 12/11/2024 1:26 PM EDT - 12/11/2024 11:59 PM EDT Hospital Encounter XRAY - [facility] [address] [place] [phone] Injury of neck, initial encounter; Chronic left shoulder pain; Left hip pain; Arthralgia of both lower legs Discharge Disposition: Home or Self Care 12/11/2024 1:26 PM EDT - 12/11/2024 11:59 PM EDT Hospital Encounter XRAY - [facility] [address] [place] [phone] Injury of neck, initial encounter; Chronic left shoulder pain; Left hip pain; Arthralgia of both lower legs Discharge Disposition: Home or Self Care 12/11/2024 1:25 PM EDT - 12/11/2024 11:59 PM EDT Hospital Encounter XRAY - [facility] [address] [place] [phone] Injury of neck, initial encounter; Chronic left shoulder pain; Left hip pain; Arthralgia of both lower legs Discharge Disposition: Home or Self Care 12/11/2024 1:25 PM EDT - 12/11/2024 11:59 PM EDT Hospital Encounter [address] [phone] Injury of neck, initial encounter; Chronic left shoulder pain; Left hip pain; Arthralgia of both lower legs Discharge Disposition: Home or Self Care 12/11/2024 12:30 PM EDT Office Visit Adult Medicine [address] [phone] Ulices Lopez, [place] Injury of neck, initial encounter (Primary Dx); Chronic left shoulder pain; Left hip pain; Arthralgia of both lower legs 12/05/2024 Telephone Adult Medicine [address] [phone] Ulices Lopez PA Appointment 12/05/2024 Telephone Adult Medicine [address] [phone] Ulices Lopez PA 11/24/2024 Telephone Adult Medicine [address] [phone] Ulices Lopez, [place] Neck Pain; Shoulder Pain 10/30/2024 Telephone Adult Medicine [address] [phone] Lisa Nettles [place] Wound Infection; Head contusion from Last 3 Months Immunizations Name Administration Dates Next Due Influenza trivalent, 0.5mL ( Fluad) 65yo and older 03/01/2024,03/27/2022,04/09/2021,03/14,03/30/2018,02/26/2017 Influenza trivalent, 0.5mL, preservative free (Fluarix; FluLaval; Fluzone) ages 6mo and older (Afluria) 3 years and older 04/26/2016,04/11/2015,04/08/2014,03/24,04/14/2012,04/02/2011,03/23/2010 ,03/08/2009,04/10/2008,03/29/2007,05/14,04/17/2005 Influenza, Unspecified 05/31/2023,03/14/2021,07/2018 Pfizer (ages 12 & older) Biv alent, COVID-19 03/27/2022 Pfizer SARS-CoV-2 COVID-19, mRNA, LNP-S, preservative free 01/09/2022,03/14/2021 Pneumococcal conjugate 13 va lent (Prevnar 13, PCV13) 2mo and older 11/29/2014 Pneumococcal polysaccharide 23 valent (Pneumovax 23) 2yo and older 03/29/2007 RSV, bivalent, protein subun it RSVpreF, 0.5mL, Preservative Free (Arexvy) 60yo and older 05/31/2023 Td Tetanus diptheria (Tdvax) 7yo and older 09/02/2009 Surgical History Surgery Date Site/Laterality Comments CHOLECYSTECTOMY 2008 PROCEDURE: HISTORICAL CHOLECYSTECTOMY OTHER SURGICAL HISTORY 1982 PROCEDURE: MT TOTAL ABDOMINAL HYSTERECT W/WO RMVL TUBE OVARY; COMMENT: pre cancer? Medical History Medical History Date Comments Actinic keratosis, hx of DX:Acti real keratosis, hx of Osteopenia 04/21/2015 DX:Osteopenia; C OMMENT: 05/27 T score spine -0.9 hip -1.7 FRAX score 14% 10 year fracture risk Family History Medical History Relation Name Comments Breast cancer Sister 1 dx breast ca under 40 Breast cancer Sister 2 dx earlier then 40s Relation Name Status Comments Brother Alive Daughter 1 Alive pre-diabetic Daughter 2 Alive Daughter 3 Alive Daughter 4 Alive Father laryngeal cance r Mother COPD Sister 1 dx breast ca under 40 breast cancer Sister 2 dx earlier then 40s breast c ancer Sister 3 diabetes Sister 4 Sister 5 Alive Social History Tobacco Use Types Packs/Day Years Used Date Smoking Tobacco: Never Smokeless Tobacco: Never Tobacco Cessation:Counseling Given: Not Answered Alcohol Use Standard Drinks/Week Comments No 0 (1 standard drink = 0.6 oz pur e alcohol) Comments No Sex and Gender Information Value Date Recorded Sex Assigned at Not on file Legal Sex Female 9:05 PM EST Gender Identity Not on file Sexual Orientation Not on file Obstetrics History Last Filed Vital Signs Vital Sign Reading Time Taken Comments Blood Pressure 118/69 12/11/2024 12:38 PM EDT Pulse 68 12/11/2024 12:38 PM EDT Temperature 36.6 C (97.9 F) 12/11/2024 12:38 PM EDT Respiratory Rate 14 12/11/2024 12:38 PM EDT Oxygen Saturation - - Inhaled Oxygen Concentration - - Weight 66.7 kg (147 lb) 12/11/2024 12:38 PM EDT Height 160 cm (5' 3 ) 12/11/2024 12:38 PM EDT Body Mass Index 26.04 12/11/2024 12:38 PM EDT Plan of Treatment Health Maintenance Due Date Last Done Comments Zoster Vaccines (1 of 2) 08/23/1954 DTaP,Tdap,and Td Vaccines (2 - Td or Tdap) 09/03/2019 09/02/2009 Social Influencers of Health Screening 05/23/2022 Medicare Annual Wellness Visit 09/06/2024 09/07/2023 COVID-19 Vaccine (7 - Pfizer risk season) 2024 04/13/2024, 03/27/2022, 01/09/2022, Additional history exists Influenza Vaccine (#1) 2025 , 05/31/2023, 03/30/2023, Additional history exists Depression Screening 09/11/2025 09/11/2024, 09/07/19 24 Falls Risk Assessment 09/11/2025 09/11/2024 Hypertension/CHF/CAD Annual BMP Blood Test 09/11/2025 09/11/2024, 03/08/2024, 03/08/2024 Cholesterol Screening (Lipid Panel) 09/11/2029 09/11/2024, 03/08/2024, 03/08/2024 Osteoporosis Screening (Bone Density Screening) 12/27/2033 12/28/2023, 08/14/2021 Pneumococcal Vaccine: 50+ Years Completed 11/29/2014, 03/29/2007 RSV Immunization Adult Patients Completed 05/31/2023, 03/30/2023 HIB Vaccines Aged Out No longer eligi ble based on patient's age to complete this topic HPV Vaccines Aged Out No longer eligi ble based on patient's age to complete this topic Hepatitis A Vaccines Aged Out No long er eligible based on patient's age to complete this topic Hepatitis B Vaccines Aged Out No long er eligible based on patient's age to complete this topic IPV Vaccines Aged Out No longer eligi ble based on patient's age to complete this topic MMR Vaccines Aged Out No longer eligi ble based on patient's age to complete this topic Meningococcal ACWY Vaccine Aged Out N o longer eligible based on patient's age to complete this topic Meningococcal B Vaccine Aged Out No l onger eligible based on patient's age to complete this topic RSV Immunization Patients Under 20 months Aged Out No longer eligible based on patient's age to complete this topic Varicella Vaccines Aged Out No longer eligible based on patient's age to complete this topic Procedures Procedure Name Priority Date/Time Associated Diagnosis Comments XR TIBIA FIBULA 2 VIEWS BILAT Routine 12/11/2024 2:12 PM EDT Injury of neck, initial encounter Chronic left shoulder pain Left hip pain Arthralgia of both lower legs XR SHOULDER 2+ VIEWS LEFT Routine 12/11/2024 2:12 PM EDT Injury of neck, initial encounter Chronic left shoulder pain Left hip pain Arthralgia of both lower legs XR HIP 2-3 VIEWS LEFT Routine 12/11/2024 2:12 PM EDT Injury of neck, initial encounter Chronic left shoulder pain Left hip pain Arthralgia of both lower legs XR CERVICAL SPINE 4-5 VIEWS Routine 12/11/2024 2:10 PM EDT Injury of neck, initial encounter Chronic left shoulder pain Left hip pain Arthralgia of both lower legs COMPREHENSIVE METABOLIC PANEL Routine 09/11/2024 2:13 PM EDT Primary insomnia Pure hypercholesterolemi a Overactive bladder Osteopenia, unspecified location LIPID PANEL WITH REFLEX TO DIRECT LDL Routine 09/11/2024 2:13 PM EDT Primary insomnia Pure hypercholesterolemi a Overactive bladder Osteopenia, unspecified location HM DEPRESSION SCREENING Routine 09/07/2023 DXA BONE DENSITY STUDY 1+ SITS AXIAL SKEL Routine 08/14/2021 2:14 PM EST Other specified disorders of bone density and structure, unspecified site from Last 3 Months or Most Recently Relevant to Health Maintenance Results * XR Tibia Fibula 2 Views bilat (12/11/2024 2:12 PM EDT) Anatomical Region Laterality Modality Lower Extremities, Calcaneus Bilateral Rad iographic Imaging 12/11/2024 4:13 PM EDT Impressions 12/11/2024 4:15 PM EDT No osseous abnormalities of the bilateral tibia or fibula. -------- FINAL REPORT -------- Dictated By: Abraham Hook Dictated Date: 12/11/2024 16:13 ET Assigned Physician: Abraham Hook Reviewed and Electronically Signed By: Abraham Hook Signed Date: 12/11/2024 16:15 ET Workstation ID: [id number] Transcribed By: Self Edit Transcribed Date: 12/11/2024 16:13 ET Narrative 12/11/2024 4:15 PM EDT HISTORY: Lower leg trauma, no prior imaging lower leg pain TECHNIQUE: 4 radiographs of the bilateral tibia and fibula COMPARISON: None FINDINGS: There is normal mineralization with no fracture or malalignment. The visualized knee and ankle articulations are well maintained. Mild degenerative changes of the bilateral ankles. No significant soft tissue swelling is identified. Procedure Note Abraham Hook MD - 12/11/2024 HISTORY: Lower leg trauma, no prior imaging lower leg pain TECHNIQUE: 4 radiographs of the bilateral tibia and fibula COMPARISON: None FINDINGS: There is normal mineralization with no fracture or malalignment. Thevisualized knee and ankle articulations are well maintained. Milddegenerative changes of the bilateral ankles. No significant soft tissueswelling is identified. IMPRESSION: No osseous abnormalities of the bilateral tibia or fibula. -------- FINAL REPORT -------- Dictated By: Abraham Hook Dictated Date: 12/11/2024 16:13 ET Assigned Physician: Abraham Hook Reviewed and Electronically Signed By: Abraham Hook Signed Date: 12/11/2024 16:15 ET Workstation ID: [id number] Transcribed By: Self Edit Transcribed Date: 12/11/2024 16:13 ET [facility] XR PROCEDURES Final R esult * XR Shoulder 2+ Views Left (12/11/2024 2:12 PM EDT) Anatomical Region Laterality Modality Upper Extremities, Shoulder Left Radi ographic Imaging 12/11/2024 4:21 PM EDT Impressions 12/11/2024 4:22 PM EDT No acute fracture or dislocation of the left shoulder. -------- FINAL REPORT -------- Dictated By: Abraham Hook Dictated Date: 12/11/2024 16:21 ET Assigned Physician: Abraham Hook Reviewed and Electronically Signed By: Abraham Hook Signed Date: 12/11/2024 16:22 ET Workstation ID: [id number] Transcribed By: Self Edit Transcribed Date: 12/11/2024 16:21 ET Narrative 12/11/2024 4:22 PM EDT HISTORY: shoulder pain left sided shoulder pain TECHNIQUE: 4 views of the left shoulder COMPARISON: None FINDINGS: No acute fracture or dislocation is seen. There is no evidence of malalignment. The AC joint is intact. Procedure Note Abraham Hook MD - 12/11/2024 HISTORY: shoulder pain left sided shoulder pain TECHNIQUE: 4 views of the left shoulder COMPARISON: None FINDINGS: No acute fracture or dislocation is seen. There is no evidence ofmalalignment. The AC joint is intact. IMPRESSION: No acute fracture or dislocation of the left shoulder. -------- FINAL REPORT -------- Dictated By: Abraham Hook Dictated Date: 12/11/2024 16:21 ET Assigned Physician: Abraham Hook Reviewed and Electronically Signed By: Abraham Hook Signed Date: 12/11/2024 16:22 ET Workstation ID: [id number] Transcribed By: Self Edit Transcribed Date: 12/11/2024 16:21 ET [facility] IM[facility] XR PROCEDURES Final R esult * XR Hip 2-3 Views Left (12/11/2024 2:12 PM EDT) Anatomical Region Laterality Modality Lower Extremities, Hip Left Radiograp hic Imaging 12/11/2024 4:19 PM EDT Impressions 12/11/2024 4:20 PM EDT No acute fracture or dislocation of the left hip. -------- FINAL REPORT -------- Dictated By: Abraham Hook Dictated Date: 12/11/2024 16:19 ET Assigned Physician: Abraham Hook Reviewed and Electronically Signed By: Abraham Hook Signed Date: 12/11/2024 16:20 ET Workstation ID: [id number] Transcribed By: Self Edit Transcribed Date: 12/11/2024 16:19 ET Narrative 12/11/2024 4:20 PM EDT HISTORY: Hip pain, chronic, arthritis or infection suspected, xray done left hip pain, hx injury TECHNIQUE: Frontal and lateral radiographs of the left hip.An AP radiograph of the pelvis was obtained to assess joint symmetry. COMPARISON: None FINDINGS: No fracture or dislocation is seen. The hip joint is well-maintained with normal alignment. The femoral head is well-seated within the acetabulum. Degenerative changes of the lower lumbar spine. Large amount stool throughout the colon. Procedure Note Abraham Hook MD - 12/11/2024 HISTORY: Hip pain, chronic, arthritis or infection suspected, xray done left hip pain, hx injury TECHNIQUE: Frontal and lateral radiographs of the left hip.An APradiograph of the pelvis was obtained to assess joint symmetry. COMPARISON: None FINDINGS: No fracture or dislocation is seen. The hip joint is well-maintained withnormal alignment. The femoral head is well-seated within the acetabulum.Degenerative changes of the lower lumbar spine. Large amount stoolthroughout the colon. IMPRESSION: No acute fracture or dislocation of the left hip. -------- FINAL REPORT -------- Dictated By: Abraham Hook Dictated Date: 12/11/2024 16:19 ET Assigned Physician: Abraham Hook Reviewed and Electronically Signed By: Abraham Hook Signed Date: 12/11/2024 16:20 ET Workstation ID: [id number] Transcribed By: Self Edit Transcribed Date: 12/11/2024 16:19 ET [facility] XR PROCEDURES Final R esult * XR Cervical Spine 4-5 Views (12/11/2024 2:10 PM EDT) Anatomical Region Laterality Modality Spine, C-spine Radiographic Maris ging 12/11/2024 4:29 PM EDT Impressions 12/11/2024 4:32 PM EDT No acute fracture or dislocation of the cervical spine. -------- FINAL REPORT -------- Dictated By: Abraham Hook Dictated Date: 12/11/2024 16:29 ET Assigned Physician: Abraham Hook Reviewed and Electronically Signed By: Abraham Hook Signed Date: 12/11/2024 16:32 ET Workstation ID: [id number] Transcribed By: Self Edit Transcribed Date: 12/11/2024 16:29 ET Narrative 12/11/2024 4:32 PM EDT HISTORY: neck pain neck pain, hx injury TECHNIQUE: 5 views of the cervical spine COMPARISON: None FINDINGS: The cervical spine is visualized from C1-C7. Vertebral body height is maintained. Decreased disc height at C5-C6 and C6-C7 with endplate sclerosis. Small anterior osteophytes are present. Moderate neuroforaminal stenosis at multiple levels. No prevertebral soft tissue swelling. The posterior elements are grossly intact. Moderate uncovertebral arthropathy of the cervical spine. The odontoid is grossly intact. Chronic scarring within the lung apices. Procedure Note Abraham Hook MD - 12/11/2024 HISTORY: neck pain neck pain, hx injury TECHNIQUE: 5 views of the cervical spine COMPARISON: None FINDINGS: The cervical spine is visualized from C1-C7. Vertebral body height ismaintained. Decreased disc height at C5-C6 and C6-C7 with endplatesclerosis. Small anterior osteophytes are present. Moderate neuroforaminalstenosis at multiple levels. No prevertebral soft tissue swelling. Theposterior elements are grossly intact. Moderate uncovertebral arthropathyof the cervical spine. The odontoid is grossly intact. Chronic scarringwithin the lung apices. IMPRESSION: No acute fracture or dislocation of the cervical spine. -------- FINAL REPORT -------- Dictated By: Abraham Hook Dictated Date: 12/11/2024 16:29 ET Assigned Physician: Abraham Hook Reviewed and Electronically Signed By: Abraham Hook Signed Date: 12/11/2024 16:32 ET Workstation ID: [id number] Transcribed By: Self Edit Transcribed Date: 12/11/2024 16:29 ET [facility] XR PROCEDURES Final R esult * Lipid panel with reflex to direct LDL (09/11/2024 2:13 PM EDT) Cholesterol 173 0 - 200 mg/dL LAB CHEMISTRY METHOD 09/11/2024 4:49 PM EDT [facility] Triglycerides 102 0 - 150 mg/dL LAB CHEMISTRY METHOD 09/11/2024 4:49 PM EDT [facility] HDL 79 >=40 mg/dL LAB CHEMISTRY METHOD 09/11/2024 4:49 PM EDT [facility] LDL Calculated 74 0 - 100 mg/dL LAB CHEMISTRY METHOD 09/11/2024 4:49 PM EDT [facility] VLDL Cholesterol Josh 20.4 mg/dL LAB CHEMISTRY METHOD 09/11/2024 4:49 PM EDT [facility] Non HDL Chol. (LDL+VLDL) 94 <145 mg/dL LAB CHEMISTRY METHOD 09/11/2024 4:49 PM EDT [facility] Chol/HDL Ratio 2.2 0.0 - 4.4 LAB CHEMISTRY METHOD 09/11/2024 4:49 PM [facility] Blood Venous blood specimen / Unknown Venipuncture / Unknown 09/11/2024 2:13 PM EDT 09/11/2024 2:14 PM EDT us [facility] BLOOD ORDERABLES Hazel l Result [facility] [address] [place] [address], * Comprehensive metabolic panel (09/11/2024 2:13 PM EDT) Sodium 137 133 - 145 mmol/L LAB CHEMISTRY METHOD 09/11/2024 4:49 PM [facility] Potassium 4.6 3.5 - 5.5 mmol/L LAB CHEMISTRY METHOD 09/11/2024 4:49 PM [facility] Chloride 105 96 - 110 mmol/L LAB CHEMISTRY METHOD 09/11/2024 4:49 PM [facility] CO2 29 21 - 32 mmol/L LAB CHEMISTRY METHOD 09/11/2024 4:49 PM [facility] Anion Gap 3 3 - 11 LAB CHEMISTRY METHOD 09/11/2024 4:49 PM [facility] Glucose 100 70 - 100 mg/dL LAB CHEMISTRY METHOD 09/11/2024 4:49 PM [facility] BUN 22 5 - 25 mg/dL LAB CHEMISTRY METHOD 09/11/2024 4:49 PM [facility] Creatinine 0.79 0.50 - 1.10 mg/dL LAB CHEMISTRY METHOD 09/11/2024 4:49 PM [facility] eGFR 72 >=60 mL/min/1. 73m2 LAB CHEMISTRY METHOD 09/11/2024 4:49 PM [facility] Comment:Calculation based on the Chronic Kidney Disease Epidemiology Collaboration (CKD-EPI) equation refit without adjustment for race. BUN/Creatinine Ratio 27.8 LAB CHEMISTRY METHOD [facility]11[facility]24 4:[facility] Calcium 9.5 8.5 - 10.5 mg/dL LAB CHEMISTRY METHOD 09/11/2024 4:49 PM [facility] AST (SGOT) 23 10 - 42 unit/L LAB CHEMISTRY METHOD 09/11/2024 4:49 PM [facility] ALT (SGPT) 27 10 - 60 unit/L LAB CHEMISTRY METHOD 09/11/2024 4:49 PM [facility] Alkaline Phosphatase 57 42 - 121 unit/L LAB CHEMISTRY METHOD 09/11/2024 4:49 PM [facility] Total Protein 7.1 6.0 - 8.0 g/dL LAB CHEMISTRY METHOD 09/11/2024 4:49 PM [facility] Albumin 3.8 3.2 - 5.0 g/dL LAB CHEMISTRY METHOD 09/11/2024 4:49 PM [facility] Total Bilirubin 0.6 0.0 - 1.4 mg/dL LAB CHEMISTRY METHOD 09/11/2024 4:49 PM [facility] Blood Venous blood specimen / Unknown Venipuncture / Unknown 09/11/2024 2:13 PM EDT 09/11/2024 2:14 PM EDT [facility] BLOOD ORDERABLES Hazel l Result [facility] [address] [place] [address], * Depression Screening (09/07/2023) Depression Screening abstracted Historical Provider MD HEALTH MAINTENANCE Final Result * DXA BONE DENSITY STUDY 1+ SITS AXIAL SKEL (08/14/2021 2:14 PM EST) Anatomical Region Laterality Modality Bone Densitometr y 05/27/2021 2:42 PM EST Narrative 08/14/2021 2:43 PM EST BONE DENSITY (DEXA) Lumbar Spine T-score is -1.0. (SD relative to 20-29 y/o adult) Z-score is 1.9. (SD relative to age matched peers) This is considered normal by WHO criteria. Left Hip T-score is -1.9. Z-score is 0.6. This is considered osteopenia by WHO criteria. IMPRESSION: This patient is considered osteopenia by WHO criteria. This patient has a 14% risk of major osteoporotic fracture and a 4.3% risk of hip fracture over the next 10 years. (World Health Organization Fracture Risk Assessment) The [facility] Department of Internal Medicine recommends using National Osteoporosis Foundation (NOF) guidelines in treatment decisions related to osteoporosis. NOF guidelines suggest considering treatment for postmenopausal women and men aged 50 or older presenting with the following: History of hip or vertebral fracture. T-score = -2.5 (DXA) at the femoral neck, total hip, or spine, after appropriate evaluation to exclude secondary causes. Low bone mass (T-score between -1.0 and -2.5 at the femoral neck or spine) AND a 10-year probability of a hip fracture = 3% OR a 10-year probability of a major osteoporosis-related fracture = 20% based on the [place]-adapted WHO algorithm Please note that all treatment decisions require clinical judgment and consideration of individual patient factors, including patient preferences, co-morbidities, previous drug use, risk factors not captured in the FRAX model (e.g., frailty, falls, vitamin D deficiency, increased bone turnover, interval significant decline in bone density) and possible under- or over-estimation of fracture risk by FRAX. Optional alternative screening schedule based on chaitanya Kamara., [facility] July 02, 2011 for patients with osteopenia (based on hip BMD T-score) is as follows: * advanced osteopenia (T scores -2.00 to -2.49), BMD testing every year * moderate osteopenia (T scores -1.50 to -1.99), BMD testing every 5 years mild osteopenia or normal BMD (T scores -1.50 and higher), BMD testing every 15 years Procedure Note Dahiana Mar MD - 06/02/2022 BONE DENSITY (DEXA) Lumbar Spine T-score is -1.0. (SD relative to 20-29 y/o adult) Z-score is 1.9. (SD relative to age matched peers) This is considered normal by WHO criteria. Left Hip T-score is -1.9. Z-score is 0.6. This is considered osteopenia by WHO criteria. IMPRESSION: This patient is considered osteopenia by WHO criteria. This patient has a14% risk of major osteoporotic fracture and a 4.3% risk of hip fracture over the next 10years. (World Health Organization Fracture Risk Assessment) The [facility] Department of Internal Medicine recommendsusing National Osteoporosis Foundation (NOF) guidelines in treatment decisions related toosteoporosis. NOF guidelines suggest considering treatment for postmenopausal women and menaged 50 or older presenting with the following: History of hip or vertebral fracture. T-score = -2.5 (DXA) at the femoral neck, total hip, or spine, afterappropriate evaluation to exclude secondary causes. Low bone mass (T-score between -1.0 and -2.5 at the femoral neck or spine)AND a 10-year probability of a hip fracture = 3% OR a 10-year probability of a majorosteoporosis-related fracture = 20% based on the [place]-adapted WHO algorithm Please note that all treatment decisions require clinical judgment andconsideration of individual patient factors, including patient preferences, co- morbidities,previous drug use, risk factors not captured in the FRAX model (e.g., frailty, falls, vitaminD deficiency, increased bone turnover, interval significant decline in bone density) andpossible under- or over-estimation of fracture risk by FRAX. Optional alternative screening schedule based on chaitanya Kamara., NEJJanuary 2011 for patients with osteopenia (based on hip BMD T-score) is as follows: * advanced osteopenia (T scores -2.00 to -2.49), BMD testing every year * moderate osteopenia (T scores -1.50 to -1.99), BMD testing every 5years mild osteopenia or normal BMD (T scores -1.50 and higher), BMD testingevery 15 years us Kelly Boubacar [facility] DXA PROCEDURES Final Result from Last 3 Months or Most Recently Relevant to Health Maintenance Insurance MEDICARE [facility] Care Teams Development Assistant Relationship Specialty Start Date End Date Ulices Lopez PA [address] [place] [address] PCP - General Internal Medicine 05/27/21
--- OUTSIDE RECORDS SUMMARY | 2024-12-18 10:35 | XMS_ITS | Patient Health Record ---
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 Role Phone Ulices Oliveros Primary Care Provider Unav ailable Shade Timmons Unavailable [phone] NikkoJossie Unavailable [phone] Allergies Allergen (clinical drug ingredient) Drug/Non Drug Allergy documented on EMR Reaction Allergy Type Onset Date Status Iodine Unknown Drug Allergy Active morphine Morphine sick Drug Allergy Active Reason For Referral No Information Medications Medication SIG (Take, Route, Frequency, Duration) Notes Start Date End Date Status Aspirin 81 MG 1 tablet Orally Once a day; Duration: 30 day(s) Active Losartan Potassium 25 MG TAKE 1 TABLET B Y MOUTH DAILY Oral; Duration: 90 Active Atorvastatin Calcium 20 MG Oral; Duration: 90 Active traMADol HCl 50 MG TAKE 1 TABLET BY NABEEL TH BACK EVERY 8 HOURS NEEDED FOR PAIN OR ARTHRITIS Oral; Duration: 28 Active Doxycycline Hyclate 100 MG 1 capsule Ora lly Once a day; Duration: 10 day(s) 03/08/2024 Active Social History Tobacco [...] Ordered Date Performed Result Body Sit e - I&D ABSCESS-COMPLICATED,MULTI 03/08/2024 N/A Encounters Encounter [facility] Date [facility] [address] 03/08/2024 Shade Timmons Skin disease L98.9 ; Tinea unguium B35.1 ; Pain in left toe(s) M79.675 and Abscess of toe of left foot L02.[address] [address] 03/23/2024 Shade Timmons Skin disease L98.9 ; Tinea unguium B35.1 and Pain in left toe(s) M79.[address] [address] 03/08/2024 Jossie El [address] [address] 03/08/2024 Shade Timmons Assessments Encounter Date Diagnosis [...] Medicare [employer] [address] [facility] [place] [address] [phone] [id number] Smita Escobar Self - patient is the insured [facility] [address] [place] [address] [id number] Smita Escobar Self - patient is the insured Medical (General) History Medical History History ICD Code Arthritis Back,Hip,and Knee pain covid-19 High Blood Pressure Poor circulation Chicken pox Measles Mumps Surgical History Surgery Date(Month/Year) cholecystectomy hysterectomy
[2024-12-18 11:11] VITALS: BP 143/62; PULSE 63; RESP 14; O2SAT 96
[2024-12-18 11:40] LABS: Troponin-I High Sensitivity 3.3 ng/L (<3.5-17.0)
[2024-12-18 11:58] VITALS: BP 146/62; PULSE 63; RESP 12; TEMP -17.7; TEMP 0
[2024-12-18 12:05] VITALS: BP 146/62; PULSE 63; RESP 12; TEMP -17.7; TEMP 0
== END 2024-12-18 12:06 | disposition home or self-care (01) ==
PROVIDERS: Physician Assistant; Emergency Provider Emergency Medicine; PCP Internal Medicine
DX: R07.89 Other chest pain (principal); R06.02 Shortness of breath; I10 Essential (primary) hypertension; Z79.899 Other long term (current) drug therapy; Z87.891 Personal history of nicotine dependence
CPT/HCPCS: 36415; 71045; 80053; 84484; 85025; 93005; 99283; 99285

== ENCOUNTER → 2024-12-18 08:00 | Outpatient (BNV) | payer MEDICARE, SELFPAY | PROVIDERS: Emergency Provider Emergency Medicine; PCP Internal Medicine; Visit Provider Radiology Diagnostic Radiology | DX: R07.9 Chest pain, unspecified (principal) | CPT/HCPCS: 71045 ==

== ENCOUNTER → 2024-12-18 08:06 | Outpatient (BNV) | payer MEDICARE, SELFPAY | PROVIDERS: Emergency Provider Emergency Medicine; PCP Internal Medicine; Visit Provider Internal Medicine Cardiovascular Disease | DX: R07.89 Other chest pain (principal) | CPT/HCPCS: 93010 ==

== ENCOUNTER 2025-03-22 10:00 | Outpatient (RCR) | payer MEDICARE, SELFPAY | END 2025-03-22 18:02 | disposition home or self-care (01) | LOC: HO.PT 10:00 | PROVIDERS: PCP Physician Assistant Medical; Visit Provider Physician Assistant Medical | DX: S19.9XXD Unspecified injury of neck, subsequent encounter (principal); M25.512 Pain in left shoulder; G89.29 Other chronic pain; M25.552 Pain in left hip; M25.561 Pain in right knee; M25.562 Pain in left knee | CPT/HCPCS: 97110; 97116; 97140; 97161; 97162; 97535 ==